=== PATIENT | male | born 1940 | race Caucasian/White ===

== ENCOUNTER 2020-09-23 19:03 | Inpatient (IN) | payer OTHER, MEDICAID ==
[~2020-09-23] VITALS: Ht 167.6 cm; Wt 73.5 kg
[~2020-09-23 19:03] MED LIST: ATOR40TA70; FENO160T9; FURO20TA4; GABA300C; IBUPROFEN; LISI20TA; TRAM50TA
[2020-09-23 19:50] LABS: BASOPHILS % 1.7 % (0.0-2.0); EOSINOPHILS % 4.7 % (0.0-5.0); MEAN CORPUSCULAR HEMOGLOBIN 27.7 pg (28.0-32.0); MEAN CORPUSCULAR VOLUME 86.3 fL (80.0-94.0); MEAN PLATELET VOLUME 7.9 fl (7.4-10.4); MONOCYTES % 6.5 % (2.0-8.0); NEUTROPHILS % 68.1 % (40.0-76.0); PLATELET 339 x1000/uL (130-400); RED BLOOD CELL COUNT 2.09 mill/uL (4.7-6.1); RED CELL DISTRIBUTION WIDTH 19.6 % (11.6-14.6)
[2020-09-23 19:54] LABS: HEMOGLOBIN. 5.8 g/dL (14.0-18.0)
[2020-09-23 19:58] LABS: CHLORIDE 111 mEq/L (98-107)
[2020-09-23 20:16] LABS: INR 1.1; PROTHROMBIN TIME 11.2 sec (9.6-11.0)
[2020-09-23 22:35] LABS: CLARITY URINE CLOUDY (CLEAR); COLOR URINE YELLOW (YELLOW); KETONES URINE NEGATIVE (NEGATIVE); LEUKOCYTE ESTERASE URINE 2+ (NEGATIVE); NITRITE URINE NEGATIVE (NEGATIVE); OCCULT BLOOD URINE 2+ (NEGATIVE); PROTEIN URINE 3+ (NEGATIVE); SPECIFIC GRAVITY URINE 1.016 (1.005-1.030); UROBILINOGEN URINE 0.2 E.U./dL (0.2-1.0)
[2020-09-23] MEDS ORDERED: FUROSEMIDE 40MG/4ML VIAL IVP NR (23:15)
[2020-09-24] VITALS (9 sets, daily range): BP systolic 136–205; BP diastolic 66–84
[2020-09-24 05:11] LABS: MEAN CORPUSCULAR HEMOGLOBIN 29.3 pg (28.0-32.0); MEAN CORPUSCULAR VOLUME 86.6 fL (80.0-94.0); PLATELET 284 x1000/uL (130-400); RED BLOOD CELL COUNT 2.34 mill/uL (4.7-6.1); RED CELL DISTRIBUTION WIDTH 17.9 % (11.6-14.6)
[2020-09-24 05:34] LABS: HEMOGLOBIN 6.9 g/dL (14.0-18.0)
[2020-09-24 05:35] LABS: HEMATOCRIT 20.3 % (42.0-52.0)
[2020-09-24] MEDS ORDERED: CEFTRIAXONE 1 G PREMIX 50 ML IV SCH (09:00)
[2020-09-24] MEDS ORDERED: BISACODYL 10MG SUPP PR PRN (09:00)
[2020-09-24] MEDS ORDERED: ONDANSETRON HCL 4MG/2ML INJ IV PRN (09:00)
[2020-09-24] MEDS ORDERED: AZITHROMYCIN 500 MG TABLET PO SCH (09:00)
[2020-09-24] MEDS ORDERED: BISACODYL 10MG SUPP PR SCH (09:00)
[2020-09-24] MEDS ORDERED: ACETAMINOPHEN 325MG TABLET PO PRN (09:00)
[2020-09-24] MEDS ORDERED: SORBITOL 70% SOLN 30ML PO SCH (09:00)
[2020-09-24] MEDS: NIFEDIPINE XL 60MG TAB PO SCH (11:26)
[2020-09-24] MEDS ORDERED: ATOR20TA65 PO (12:30)
[2020-09-24] MEDS ORDERED: GLIP10TA10 PO (12:30)
[2020-09-24] MEDS ORDERED: FURO20TA4 PO (12:30)
[2020-09-24] MEDS ORDERED: LISI10TA5 PO (12:30)
[2020-09-24] MEDS ORDERED: AMLO2.5T2 PO (12:30)
[2020-09-24] MEDS ORDERED: HYDR-4133 PO (12:30)
[2020-09-24] MEDS ORDERED: CLONIDINE 0.1MG TABLET PO NR (14:00)
[2020-09-24] MEDS ORDERED: PNEUMOCOCCAL 23-VAL P-SAC VAC 0.5 ML IM ONE (15:00)
[2020-09-24] MEDS ORDERED: EPOETIN ALFA-EPBX 10,000 UNIT/ML VIAL SUBCUT SCH (21:00)
[2020-09-24] MEDS: CEFTRIAXONE 1,000 MG in DEXTROSE 5% WATER 50 ML IV SCH (21:17)
[2020-09-25] VITALS: BP 151/56
[2020-09-25 04:00] VITALS: BP 167/66
[2020-09-25] MEDS: CLONIDINE 0.1MG TABLET PO PRN (05:10)
[2020-09-25 06:24] LABS: BASOPHILS % 0.9 % (0.0-2.0); EOSINOPHILS % 3.5 % (0.0-5.0); HEMATOCRIT. 29.1 % (42.0-52.0); HEMOGLOBIN. 9.7 g/dL (14.0-18.0); MEAN CORPUSCULAR HEMOGLOBIN 29.3 pg (28.0-32.0); MEAN CORPUSCULAR VOLUME 87.9 fL (80.0-94.0); MEAN PLATELET VOLUME 8.8 fl (7.4-10.4); MONOCYTES % 7.7 % (2.0-8.0); NEUTROPHILS % 67.9 % (40.0-76.0); PLATELET 273 x1000/uL (130-400); RED BLOOD CELL COUNT 3.31 mill/uL (4.7-6.1)
[2020-09-25 07:07] LABS: PHOSPHORUS 4.7 mg/dL (2.5-4.9)
[2020-09-25 08:00] VITALS: BP 140/53
[2020-09-25] MEDS: NIFEDIPINE XL 60MG TAB PO SCH (08:54)
[2020-09-25] MEDS: AZITHROMYCIN 250 MG TABLET PO SCH (08:54)
[2020-09-25 12:22] VITALS: BP 110/51
[2020-09-25 16:00] VITALS: BP 137/68
[2020-09-25 20:00] VITALS: BP 135/63
[2020-09-25] MEDS: CEFTRIAXONE 1,000 MG in DEXTROSE 5% WATER 50 ML IV SCH (20:48)
[2020-09-26] VITALS: BP 153/90
[2020-09-26 04:00] VITALS: BP 178/63
[2020-09-26] MEDS: CLONIDINE 0.1MG TABLET PO PRN (05:26)
[2020-09-26] MEDS: NIFEDIPINE XL 60MG TAB PO SCH (08:09)
[2020-09-26] MEDS: AZITHROMYCIN 250 MG TABLET PO SCH (08:10)
[2020-09-26 08:42] LABS: BASOPHILS % 1.3 % (0.0-2.0); EOSINOPHILS % 5.2 % (0.0-5.0); HEMATOCRIT. 32.9 % (42.0-52.0); LYMPHOCYTES % 23.2 % (20.0-50.0); MEAN CORPUSCULAR HEMOGLOBIN 29.1 pg (28.0-32.0); MEAN CORPUSCULAR VOLUME 87.4 fL (80.0-94.0); MEAN PLATELET VOLUME 8.8 fl (7.4-10.4); MONOCYTES % 6.8 % (2.0-8.0); NEUTROPHILS % 63.5 % (40.0-76.0); PLATELET 270 x1000/uL (130-400); RED BLOOD CELL COUNT 3.77 mill/uL (4.7-6.1); RED CELL DISTRIBUTION WIDTH 17.3 % (11.6-14.6)
[2020-09-26 08:45] LABS: PHOSPHORUS 4.5 mg/dL (2.5-4.9)
[2020-09-26 12:00] VITALS: BP 133/57
[2020-09-26 12:01] LABS: HEPATITIS B SURFACE AB 779.6 mIU/mL
[2020-09-26 12:12] LABS: HEPATITIS B SURFACE ANTIGEN NEGATIVE
[2020-09-26 16:00] VITALS: BP 151/71
[2020-09-26 20:00] VITALS: BP 142/63
[2020-09-26] MEDS: CEFTRIAXONE 1,000 MG in DEXTROSE 5% WATER 50 ML IV SCH (20:49)
[2020-09-27] VITALS: BP 153/72
[2020-09-27 04:00] VITALS: BP 147/67
[2020-09-27 06:38] LABS: BASOPHILS % 1.2 % (0.0-2.0); EOSINOPHILS % 6.2 % (0.0-5.0); HEMATOCRIT. 28.6 % (42.0-52.0); HEMOGLOBIN. 9.8 g/dL (14.0-18.0); LYMPHOCYTES % 26.1 % (20.0-50.0); MEAN CORPUSCULAR HEMOGLOBIN 29.9 pg (28.0-32.0); MEAN CORPUSCULAR VOLUME 87.7 fL (80.0-94.0); MEAN PLATELET VOLUME 8.9 fl (7.4-10.4); MONOCYTES % 9.1 % (2.0-8.0); NEUTROPHILS % 57.4 % (40.0-76.0); PLATELET 226 x1000/uL (130-400); RED BLOOD CELL COUNT 3.26 mill/uL (4.7-6.1); RED CELL DISTRIBUTION WIDTH 16.8 % (11.6-14.6)
[2020-09-27 08:00] VITALS: BP 145/62
[2020-09-27] MEDS: AZITHROMYCIN 250 MG TABLET PO SCH (09:47)
[2020-09-27] MEDS: NIFEDIPINE XL 60MG TAB PO SCH (09:48)
[2020-09-27 12:00] VITALS: BP 131/58
[2020-09-27 16:00] VITALS: BP 137/72
[2020-09-27] MEDS: CEFTRIAXONE 1,000 MG in DEXTROSE 5% WATER 50 ML IV SCH (20:47)
[2020-09-27 22:00] VITALS: BP 148/70
[2020-09-28 04:00] VITALS: BP 140/58
[2020-09-28 07:12] LABS: BASOPHILS % 0.8 % (0.0-2.0); HEMATOCRIT. 31.5 % (42.0-52.0); HEMOGLOBIN. 10.5 g/dL (14.0-18.0); LYMPHOCYTES % 24.9 % (20.0-50.0); MEAN CORPUSCULAR HEMOGLOBIN 29.2 pg (28.0-32.0); MEAN CORPUSCULAR VOLUME 87.2 fL (80.0-94.0); MEAN PLATELET VOLUME 9.3 fl (7.4-10.4); MONOCYTES % 9.1 % (2.0-8.0); NEUTROPHILS % 59.2 % (40.0-76.0); PLATELET 211 x1000/uL (130-400); RED BLOOD CELL COUNT 3.61 mill/uL (4.7-6.1); RED CELL DISTRIBUTION WIDTH 17.5 % (11.6-14.6)
[2020-09-28 07:39] LABS: PHOSPHORUS 4.8 mg/dL (2.5-4.9)
[2020-09-28 08:00] VITALS: BP 145/66
[2020-09-28] MEDS: AZITHROMYCIN 250 MG TABLET PO SCH (08:38)
[2020-09-28] MEDS: NIFEDIPINE XL 60MG TAB PO SCH (08:38)
[2020-09-28 12:00] VITALS: BP 144/70
[2020-09-28 12:01] VITALS: BP 144/70
[2020-09-28 16:00] VITALS: BP 145/64
[2020-09-28 20:00] VITALS: BP 140/57
[2020-09-28] MEDS: CEFTRIAXONE 1,000 MG in DEXTROSE 5% WATER 50 ML IV SCH (20:50)
[2020-09-29] VITALS: BP 151/60
[2020-09-29 04:00] VITALS: BP 155/64
[2020-09-29 07:31] LABS: BASOPHILS % 1.4 % (0.0-2.0); HEMATOCRIT. 30.4 % (42.0-52.0); HEMOGLOBIN. 10.1 g/dL (14.0-18.0); LYMPHOCYTES % 25.1 % (20.0-50.0); MEAN CORPUSCULAR HEMOGLOBIN 29.4 pg (28.0-32.0); MEAN CORPUSCULAR VOLUME 88.7 fL (80.0-94.0); MONOCYTES % 10.2 % (2.0-8.0); NEUTROPHILS % 56.3 % (40.0-76.0); PLATELET 182 x1000/uL (130-400); RED BLOOD CELL COUNT 3.42 mill/uL (4.7-6.1); RED CELL DISTRIBUTION WIDTH 17.2 % (11.6-14.6)
[2020-09-29 08:00] VITALS: BP 142/73
[2020-09-29] MEDS: NIFEDIPINE XL 60MG TAB PO SCH (09:06)
[2020-09-29 09:11] LABS: PHOSPHORUS 6.1 mg/dL (2.5-4.9)
[2020-09-29 12:00] VITALS: BP 163/63
[2020-09-29] MEDS: CLONIDINE 0.1MG TABLET PO PRN (12:54)
[2020-09-29 16:00] VITALS: BP 140/61
[2020-09-29 20:00] VITALS: BP 150/59
[2020-09-30] VITALS: BP 137/65
[2020-09-30 04:00] VITALS: BP 129/70
[2020-09-30 07:27] LABS: BASOPHILS % 1.2 % (0.0-2.0); EOSINOPHILS % 6.9 % (0.0-5.0); HEMATOCRIT. 28.8 % (42.0-52.0); HEMOGLOBIN. 9.7 g/dL (14.0-18.0); MEAN CORPUSCULAR HEMOGLOBIN 29.8 pg (28.0-32.0); MEAN CORPUSCULAR VOLUME 88.5 fL (80.0-94.0); MEAN PLATELET VOLUME 9.4 fl (7.4-10.4); MONOCYTES % 8.3 % (2.0-8.0); NEUTROPHILS % 61.6 % (40.0-76.0); PLATELET 184 x1000/uL (130-400); RED BLOOD CELL COUNT 3.25 mill/uL (4.7-6.1); RED CELL DISTRIBUTION WIDTH 17.5 % (11.6-14.6)
[2020-09-30 07:38] LABS: PHOSPHORUS 6.5 mg/dL (2.5-4.9)
[2020-09-30 08:00] VITALS: BP 157/66
[2020-09-30] MEDS: NIFEDIPINE XL 60MG TAB PO SCH (08:51)
[2020-09-30 12:00] VITALS: BP 158/60
[2020-09-30] MEDS ORDERED: ALPRAZOLAM 0.5 MG TABLET PO PRN (12:00)
[2020-09-30 16:00] VITALS: BP 141/67
[2020-09-30 20:00] VITALS: BP 160/64
[2020-09-30] MEDS: CLONIDINE 0.1MG TABLET PO PRN (21:21)
[2020-10-01] VITALS: BP 125/61
[2020-10-01 04:00] VITALS: BP 154/69
[2020-10-01 06:40] LABS: BASOPHILS % 1.8 % (0.0-2.0); EOSINOPHILS % 6.7 % (0.0-5.0); HEMOGLOBIN. 9.7 g/dL (14.0-18.0); LYMPHOCYTES % 27.1 % (20.0-50.0); MEAN CORPUSCULAR HEMOGLOBIN 29.7 pg (28.0-32.0); MEAN CORPUSCULAR VOLUME 89.1 fL (80.0-94.0); MEAN PLATELET VOLUME 9.6 fl (7.4-10.4); MONOCYTES % 8.5 % (2.0-8.0); NEUTROPHILS % 55.9 % (40.0-76.0); PLATELET 170 x1000/uL (130-400); RED BLOOD CELL COUNT 3.25 mill/uL (4.7-6.1); RED CELL DISTRIBUTION WIDTH 17.6 % (11.6-14.6)
[2020-10-01 08:00] VITALS: BP 147/40
[2020-10-01] MEDS: NIFEDIPINE XL 60MG TAB PO SCH (08:37)
[2020-10-01 12:00] VITALS: BP 117/45
[2020-10-01 16:00] VITALS: BP 112/79
[2020-10-01 20:00] VITALS: BP 141/58
[2020-10-02] VITALS: BP 138/67
[2020-10-02 04:00] VITALS: BP 152/98
[2020-10-02 07:42] LABS: BASOPHILS % 1.1 % (0.0-2.0); EOSINOPHILS % 6.4 % (0.0-5.0); HEMATOCRIT. 33.6 % (42.0-52.0); HEMOGLOBIN. 11.2 g/dL (14.0-18.0); MEAN CORPUSCULAR HEMOGLOBIN 29.7 pg (28.0-32.0); MEAN CORPUSCULAR VOLUME 89.1 fL (80.0-94.0); MEAN PLATELET VOLUME 9.5 fl (7.4-10.4); MONOCYTES % 8.1 % (2.0-8.0); NEUTROPHILS % 52.4 % (40.0-76.0); PLATELET 186 x1000/uL (130-400); RED BLOOD CELL COUNT 3.77 mill/uL (4.7-6.1)
[2020-10-02 08:10] LABS: PHOSPHORUS 7.2 mg/dL (2.5-4.9)
[2020-10-02] MEDS: NIFEDIPINE XL 60MG TAB PO SCH (08:58)
[2020-10-02 12:00] VITALS: BP 154/59
[2020-10-02 16:00] VITALS: BP 165/71
[2020-10-02 20:00] VITALS: BP 143/56
[2020-10-03] VITALS: BP 140/73
[2020-10-03 04:00] VITALS: BP 146/70
[2020-10-03 07:29] LABS: BASOPHILS % 1.5 % (0.0-2.0); EOSINOPHILS % 6.4 % (0.0-5.0); HEMATOCRIT. 31.5 % (42.0-52.0); HEMOGLOBIN. 10.7 g/dL (14.0-18.0); MEAN CORPUSCULAR HEMOGLOBIN 30.1 pg (28.0-32.0); MEAN CORPUSCULAR VOLUME 88.9 fL (80.0-94.0); MEAN PLATELET VOLUME 9.7 fl (7.4-10.4); MONOCYTES % 7.6 % (2.0-8.0); NEUTROPHILS % 59.5 % (40.0-76.0); PLATELET 176 x1000/uL (130-400); RED BLOOD CELL COUNT 3.54 mill/uL (4.7-6.1); RED CELL DISTRIBUTION WIDTH 17.7 % (11.6-14.6)
[2020-10-03 08:00] VITALS: BP 141/60
[2020-10-03 08:15] LABS: PHOSPHORUS 4.7 mg/dL (2.5-4.9)
[2020-10-03] MEDS: NIFEDIPINE XL 60MG TAB PO SCH (08:19)
[2020-10-03 12:00] VITALS: BP 138/56
[2020-10-03 16:00] VITALS: BP 216/170
[2020-10-03 20:00] VITALS: BP 178/64
[2020-10-03] MEDS: CLONIDINE 0.1MG TABLET PO PRN (21:14)
[2020-10-04] VITALS (7 sets, daily range): BP systolic 130–164; BP diastolic 60–96
[2020-10-04 07:22] LABS: BASOPHILS % 1.8 % (0.0-2.0); EOSINOPHILS % 6.8 % (0.0-5.0); HEMATOCRIT. 27.7 % (42.0-52.0); HEMOGLOBIN. 9.2 g/dL (14.0-18.0); LYMPHOCYTES % 27.2 % (20.0-50.0); MEAN CORPUSCULAR HEMOGLOBIN 29.4 pg (28.0-32.0); MEAN CORPUSCULAR VOLUME 88.4 fL (80.0-94.0); MEAN PLATELET VOLUME 10.1 fl (7.4-10.4); MONOCYTES % 9.2 % (2.0-8.0); PLATELET 146 x1000/uL (130-400); RED BLOOD CELL COUNT 3.13 mill/uL (4.7-6.1); RED CELL DISTRIBUTION WIDTH 17.8 % (11.6-14.6)
[2020-10-04 07:35] LABS: PHOSPHORUS 6.3 mg/dL (2.5-4.9)
[2020-10-04] MEDS: NIFEDIPINE XL 60MG TAB PO SCH (08:40)
[2020-10-04] MEDS ORDERED: EPOETIN ALFA 10000UNITS/ML VIAL SUBCUT ONE (21:00)
[2020-10-05] VITALS (7 sets, daily range): BP systolic 140–161; BP diastolic 45–77
[2020-10-05] MEDS: CLONIDINE 0.1MG TABLET PO PRN (05:27)
[2020-10-05 06:24] LABS: PHOSPHORUS 6.9 mg/dL (2.5-4.9)
[2020-10-05 06:55] LABS: BASOPHILS % 0.8 % (0.0-2.0); EOSINOPHILS % 6.4 % (0.0-5.0); HEMATOCRIT. 33.3 % (42.0-52.0); HEMOGLOBIN. 10.9 g/dL (14.0-18.0); MEAN CORPUSCULAR HEMOGLOBIN 29.3 pg (28.0-32.0); MEAN CORPUSCULAR VOLUME 89.4 fL (80.0-94.0); MONOCYTES % 7.3 % (2.0-8.0); NEUTROPHILS % 56.5 % (40.0-76.0); PLATELET 166 x1000/uL (130-400); RED BLOOD CELL COUNT 3.72 mill/uL (4.7-6.1); RED CELL DISTRIBUTION WIDTH 17.4 % (11.6-14.6)
[2020-10-05] MEDS: NIFEDIPINE XL 60MG TAB PO SCH (09:00)
[2020-10-06] VITALS: BP 136/45
[2020-10-06 04:00] VITALS: BP 142/70
[2020-10-06 06:23] LABS: PHOSPHORUS 6.1 mg/dL (2.5-4.9)
[2020-10-06 07:26] LABS: BASOPHILS % 1.2 % (0.0-2.0); EOSINOPHILS % 6.2 % (0.0-5.0); HEMATOCRIT. 30.8 % (42.0-52.0); HEMOGLOBIN. 10.1 g/dL (14.0-18.0); LYMPHOCYTES % 31.8 % (20.0-50.0); MEAN CORPUSCULAR HEMOGLOBIN 29.3 pg (28.0-32.0); MEAN CORPUSCULAR VOLUME 89.5 fL (80.0-94.0); MONOCYTES % 9.9 % (2.0-8.0); NEUTROPHILS % 50.9 % (40.0-76.0); RED BLOOD CELL COUNT 3.44 mill/uL (4.7-6.1); RED CELL DISTRIBUTION WIDTH 17.6 % (11.6-14.6)
[2020-10-06 08:00] VITALS: BP 132/65
[2020-10-06] MEDS: NIFEDIPINE XL 60MG TAB PO SCH (08:34)
[2020-10-06 12:00] VITALS: BP 145/57
[2020-10-06 15:00] LABS: PLATELET 146 x1000/uL (130-400)
[2020-10-06 16:00] VITALS: BP 141/61
[2020-10-06 20:00] VITALS: BP 167/67
[2020-10-06] MEDS: CLONIDINE 0.1MG TABLET PO PRN (22:09)
[2020-10-07] VITALS: BP 128/54
[2020-10-07 04:00] VITALS: BP 122/60
[2020-10-07 06:42] LABS: BASOPHILS % 1.9 % (0.0-2.0); EOSINOPHILS % 6.3 % (0.0-5.0); HEMATOCRIT. 29.7 % (42.0-52.0); HEMOGLOBIN. 9.9 g/dL (14.0-18.0); LYMPHOCYTES % 29.8 % (20.0-50.0); MEAN CORPUSCULAR HEMOGLOBIN 29.8 pg (28.0-32.0); MEAN CORPUSCULAR VOLUME 89.2 fL (80.0-94.0); MEAN PLATELET VOLUME 10.1 fl (7.4-10.4); MONOCYTES % 9.6 % (2.0-8.0); NEUTROPHILS % 52.4 % (40.0-76.0); PLATELET 146 x1000/uL (130-400); RED BLOOD CELL COUNT 3.33 mill/uL (4.7-6.1); RED CELL DISTRIBUTION WIDTH 17.6 % (11.6-14.6)
[2020-10-07 07:12] LABS: PHOSPHORUS 6.3 mg/dL (2.5-4.9)
[2020-10-07 08:00] VITALS: BP 131/63
[2020-10-07] MEDS: NIFEDIPINE XL 60MG TAB PO SCH (08:33)
[2020-10-07 12:00] VITALS: BP 151/75
[2020-10-07] MEDS ORDERED: NIFE-32 PO (14:10)
[2020-10-07 16:00] VITALS: BP 149/60
== END 2020-10-07 16:35 | disposition home or self-care (01) | DRG 177 ==
LOC: ER 19:03 → 7WST 09-24 00:12 → ENRESERV 09-24 08:08
PROVIDERS: ADMIT Internal Medicine; ATTEND Internal Medicine
PROC: 30233N1 Transfusion of Nonautologous Red Blood Cells into Peripheral Vein, Percutaneous Approach (ICD-10-PCS; principal; 2020-09-24)
PROC: 5A1D70Z Performance of Urinary Filtration, Intermittent, Less than 6 Hours Per Day (ICD-10-PCS; 2020-09-25)
PROC: 5A1D70Z Performance of Urinary Filtration, Intermittent, Less than 6 Hours Per Day (ICD-10-PCS; 2020-09-26)
PROC: 5A1D70Z Performance of Urinary Filtration, Intermittent, Less than 6 Hours Per Day (ICD-10-PCS; 2020-09-29)
PROC: 5A1D70Z Performance of Urinary Filtration, Intermittent, Less than 6 Hours Per Day (ICD-10-PCS; 2020-10-01)
PROC: 5A1D70Z Performance of Urinary Filtration, Intermittent, Less than 6 Hours Per Day (ICD-10-PCS; 2020-10-04)
PROC: 5A1D70Z Performance of Urinary Filtration, Intermittent, Less than 6 Hours Per Day (ICD-10-PCS; 2020-10-06)
DX: U07.1 COVID-19 (principal); J96.91 Respiratory failure, unspecified with hypoxia; N18.6 End stage renal disease; J12.82 Pneumonia due to coronavirus disease 2019; I13.2 Hypertensive heart and chronic kidney disease with heart failure and with stage 5 chronic kidney disease, or end stage renal disease; E44.0 Moderate protein-calorie malnutrition; E87.2 Acidosis; N13.8 Other obstructive and reflux uropathy; N20.2 Calculus of kidney with calculus of ureter; N17.9 Acute kidney failure, unspecified; N25.81 Secondary hyperparathyroidism of renal origin; E11.22 Type 2 diabetes mellitus with diabetic chronic kidney disease; I16.0 Hypertensive urgency; K56.41 Fecal impaction; E87.8 Other disorders of electrolyte and fluid balance, not elsewhere classified; E78.5 Hyperlipidemia, unspecified; M19.90 Unspecified osteoarthritis, unspecified site; D64.9 Anemia, unspecified; I50.9 Heart failure, unspecified; E78.00 Pure hypercholesterolemia, unspecified; N26.1 Atrophy of kidney (terminal); Z87.442 Personal history of urinary calculi; Z99.2 Dependence on renal dialysis; Z82.49 Family history of ischemic heart disease and other diseases of the circulatory system; Z83.3 Family history of diabetes mellitus; Z68.26 Body mass index [BMI] 26.0-26.9, adult; Z79.899 Other long term (current) drug therapy
CPT/HCPCS: 36415; 71045; 74176; 80048; 80053; 81003; 82270; 83605; 83735; 83880; 84100; 84484; 85025; 85027; 86705; 86706; 86803; 86850; 86900; 86920; 87340; 87426; 93005; 99291; J0696; J0885; J1940; J7060; P9016; U0003

== ENCOUNTER 2022-04-28 20:58 | Emergency (ER) | payer MEDICARE, MEDICAID ==
[~2022-04-28] VITALS: Ht 167.6 cm; Wt 69.0 kg
[~2022-04-28 20:58] MED LIST changes: +ATOR20TA65 PO; -ATOR40TA70; -FENO160T9; -FURO20TA4; -GABA300C; -IBUPROFEN; -LISI20TA; +NIFE-32 PO; -TRAM50TA
[2022-04-28] MEDS ORDERED: ONDANSETRON HCL 4MG/2ML INJ IV STA (22:48)
[2022-04-28] MEDS ORDERED: MORPHINE SULFATE 4 MG/ML CPJ (NOT FOR IM USE) IV STA (22:48)
[2022-04-28 23:04] LABS: EOSINOPHILS % 4.3 % (0.0-5.0); HEMATOCRIT. 41.6 % (42.0-52.0); HEMOGLOBIN. 13.5 g/dL (14.0-18.0); LYMPHOCYTES % 20.3 % (20.0-50.0); MEAN CORPUSCULAR HEMOGLOBIN 31.1 pg (28.0-32.0); MEAN CORPUSCULAR VOLUME 96.1 fL (80.0-94.0); MEAN PLATELET VOLUME 9.8 fl (7.4-10.4); MONOCYTES % 8.8 % (2.0-8.0); NEUTROPHILS % 65.6 % (40.0-76.0); PLATELET 174 x1000/uL (130-400); RED BLOOD CELL COUNT 4.33 mill/uL (4.7-6.1); RED CELL DISTRIBUTION WIDTH 14.6 % (11.6-14.6)
[2022-04-28 23:08] LABS: CHLORIDE 103 mEq/L (98-107)
[2022-04-28 23:11] LABS: CLARITY URINE TURBID (CLEAR); COLOR URINE YELLOW (YELLOW); KETONES URINE NEGATIVE (NEGATIVE); LEUKOCYTE ESTERASE URINE 3+ (NEGATIVE); NITRITE URINE NEGATIVE (NEGATIVE); OCCULT BLOOD URINE 2+ (NEGATIVE); PH URINE 7.5 (4.5-8.0); PROTEIN URINE 3+ (NEGATIVE); SPECIFIC GRAVITY URINE 1.015 (1.005-1.030); UROBILINOGEN URINE 0.2 E.U./dL (0.2-1.0)
[2022-04-29] MEDS ORDERED: PIPERACILLIN/TAZ 3.375G PREMIX 50 ML IV NR (01:30)
[2022-04-29] MEDS ORDERED: CEPH500C2 MT (08:29)
[2022-04-29] MEDS ORDERED: TRAM50TA MT (08:29)
[2022-04-29 08:51] VITALS: BP 183/70
== END 2022-04-29 09:15 | disposition home or self-care (01) ==
LOC: ER 20:58 → EDBEDREQ 04-29 08:12 → ENRESERV 04-29 08:22 → CANRESERV 04-29 08:22 → CANBEDREQ 04-29 08:31 → ER 04-29 09:15
DX: N39.0 Urinary tract infection, site not specified (principal); M79.605 Pain in left leg; I12.0 Hypertensive chronic kidney disease with stage 5 chronic kidney disease or end stage renal disease; E11.22 Type 2 diabetes mellitus with diabetic chronic kidney disease; N18.6 End stage renal disease; E78.00 Pure hypercholesterolemia, unspecified; Z99.2 Dependence on renal dialysis; Z79.899 Other long term (current) drug therapy
CPT/HCPCS: 36415; 71045; 74176; 80053; 81003; 83605; 83690; 85025; 87040; 87077; 87086; 87186; 93971; 96365; 96375; 99285; J2270; J2405; J2543

== ENCOUNTER 2022-05-13 10:17 | Emergency (ER) | payer MEDICARE, MEDICAID ==
[~2022-05-13] VITALS: Ht 167.6 cm; Wt 81.0 kg
[~2022-05-13 10:17] MED LIST changes: +CEPH500C2 MT; +TRAM50TA MT
[2022-05-13 10:40] VITALS: BP 172/64
[2022-05-13] MEDS ORDERED: LIDOCAINE HCL 1% 20ML VIAL (Pyxis) INJ INFIL ONE (17:00)
[2022-05-13] MEDS ORDERED: ACETAMINOPHEN 325MG TABLET PO ONE (17:30)
== END 2022-05-13 18:58 | disposition home or self-care (01) ==
LOC: ER 10:46
DX: M25.462 Effusion, left knee (principal); E11.9 Type 2 diabetes mellitus without complications; I10 Essential (primary) hypertension; E78.00 Pure hypercholesterolemia, unspecified; Z98.890 Other specified postprocedural states
CPT/HCPCS: 20610; 73562; 99285; J3490

== ENCOUNTER 2022-05-27 18:35 | Emergency (ER) | payer MEDICARE, MEDICAID ==
[~2022-05-27] VITALS: Ht 170.2 cm; Wt 82.0 kg
[2022-05-27] MEDS ORDERED: CEFTRIAXONE 1 G PREMIX 50 ML IV ONE (23:45)
[2022-05-28] MEDS ORDERED: MORPHINE SULFATE 4 MG/ML CPJ (NOT FOR IM USE) IV ONE (10:15)
[2022-05-29] MEDS ORDERED: NIFEDIPINE XL 60MG TAB PO ONE (02:15)
[2022-05-29 18:00] VITALS: BP 147/72
[2022-05-29] MEDS ORDERED: MORPHINE SULFATE 4 MG/ML CPJ (NOT FOR IM USE) IV ONE (22:30)
[2022-05-29] MEDS ORDERED: AMPICILLIN SOD/SULBACTAM NA 3 G in SODIUM CHLORIDE 0.9% 100 ML IV SCH (22:30)
== END 2022-05-29 23:30 | disposition left against medical advice (07) ==
LOC: ER 18:35
DX: M79.641 Pain in right hand (principal); I10 Essential (primary) hypertension; E11.9 Type 2 diabetes mellitus without complications; E78.00 Pure hypercholesterolemia, unspecified; Z98.890 Other specified postprocedural states; W18.30XA Fall on same level, unspecified, initial encounter; Y93.89 Activity, other specified; Y92.89 Other specified places as the place of occurrence of the external cause; Y99.8 Other external cause status
CPT/HCPCS: 70450; 70486; 71045; 72125; 72170; 96365; 96375; 99284; J0295; J0696; J2270; J7050

== ENCOUNTER 2022-06-22 13:39 | Emergency (ER) | payer MEDICARE, MEDICAID ==
[~2022-06-22] VITALS: Ht 165.1 cm; Wt 57.5 kg
[2022-06-22 15:00] LABS: CHLORIDE 103 mEq/L (98-107)
[2022-06-22 15:09] LABS: BASOPHILS % 1.7 % (0.0-2.0); EOSINOPHILS % 8.9 % (0.0-5.0); HEMOGLOBIN. 8.5 g/dL (14.0-18.0); LYMPHOCYTES % 14.9 % (20.0-50.0); MEAN CORPUSCULAR HEMOGLOBIN 31.2 pg (28.0-32.0); MEAN CORPUSCULAR VOLUME 91.7 fL (80.0-94.0); MEAN PLATELET VOLUME 9.2 fl (7.4-10.4); MONOCYTES % 7.4 % (2.0-8.0); NEUTROPHILS % 67.1 % (40.0-76.0); PLATELET 231 x1000/uL (130-400); RED BLOOD CELL COUNT 2.73 mill/uL (4.7-6.1)
[2022-06-22 15:18] LABS: BG BASE EXCESS -5.2 mmol/L (-2.0-2.0); BG CARBOXYHEMOGLOBIN 0.3 % (0.5-1.5); BG DEOXYHEMOGLOBIN 5.3 % (0.0-5.0); BG HCO3 ACT 19.4 mmol/L (22.0-26.0); BG METHEMOGLOBIN 0.3 % (0.0-1.5); BG OXYGEN SATURATION 94.7 % (92.0-98.5); BG OXYHEMOGLOBIN 94.1 % (94.0-97.0); BG PCO2 33.7 mmHg (35.0-45.0); BG PH 7.378 (7.350-7.450); BG PO2 78.6 mmHg (75.0-100.0); BG SAMPLE SITE RIGHT RADIAL; BG TOTAL HEMOGLOBIN 8.3 g/dL (12.0-18.0); BG VENT MODE ROOM AIR
[2022-06-22 15:54] LABS: PARTIAL THROMBOPLASTIN TIME 29.9 sec (23.4-31.0); PROTHROMBIN TIME 11.2 sec (9.6-11.0)
[2022-06-22] MEDS ORDERED: SODIUM POLYSTYRENE SULFONATE 15 G/60 ML BOT PO ONE (17:00)
[2022-06-22 19:43] VITALS: BP 168/94
== END 2022-06-22 20:47 | disposition short-term general hospital (02) ==
LOC: ER 13:39 → CANBEDREQ 15:17 → ER 20:47
DX: T82.868A Thrombosis due to vascular prosthetic devices, implants and grafts, initial encounter (principal); I82.612 Acute embolism and thrombosis of superficial veins of left upper extremity; I12.0 Hypertensive chronic kidney disease with stage 5 chronic kidney disease or end stage renal disease; E11.22 Type 2 diabetes mellitus with diabetic chronic kidney disease; N18.6 End stage renal disease; N17.9 Acute kidney failure, unspecified; D64.9 Anemia, unspecified; E87.8 Other disorders of electrolyte and fluid balance, not elsewhere classified; Z20.822 Contact with and (suspected) exposure to COVID-19; Z99.2 Dependence on renal dialysis; Z79.899 Other long term (current) drug therapy
CPT/HCPCS: 36415; 36600; 71045; 80053; 82375; 82805; 83735; 84100; 85025; 85610; 85730; 87426; 93005; 93971; 99285; C9803

== ENCOUNTER 2022-07-19 15:05 | Inpatient (IN) | payer MEDICARE, MEDICAID ==
[~2022-07-19] VITALS: Ht 175.3 cm; Wt 79.8 kg
[2022-07-19] MEDS ORDERED: TETRACAINE 0.5% OPHTH DROPS 4ML RIGHTEYE ONE (16:00)
[2022-07-19] MEDS ORDERED: TETANUS, DIPHTHERIA, PERTUSSIS VAC/PF 0.5ML (>10YR OLD) IM ONE (16:00)
[2022-07-19] MEDS ORDERED: FLUORESCEIN SODIUM 1MG/STRIP RIGHTEYE ONE (16:00)
[2022-07-19 17:06] LABS: HEMATOCRIT. 25.2 % (42.0-52.0); HEMOGLOBIN. 8.5 g/dL (14.0-18.0); LYMPHOCYTES % 17.1 % (20.0-50.0); MEAN CORPUSCULAR HEMOGLOBIN 31.3 pg (28.0-32.0); MEAN CORPUSCULAR VOLUME 93.1 fL (80.0-94.0); MEAN PLATELET VOLUME 9.6 fl (7.4-10.4); MONOCYTES % 7.1 % (2.0-8.0); NEUTROPHILS % 65.8 % (40.0-76.0); PLATELET 176 x1000/uL (130-400); RED BLOOD CELL COUNT 2.71 mill/uL (4.7-6.1); RED CELL DISTRIBUTION WIDTH 15.9 % (11.6-14.6)
[2022-07-19 17:26] LABS: CHLORIDE 97 mEq/L (98-107)
[2022-07-19 17:35] LABS: ETHANOL BLOOD < 10 mg/dL
[2022-07-19] MEDS: AMPICILLIN SOD/SULBACTAM NA 1.5 G in SODIUM CHLORIDE 0.9% 50 ML IV SCH (18:57)
[2022-07-19] MEDS ORDERED: HYDROCODONE/ACETAMINOPHEN 5/325MG TABLET PO NR (20:45)
[2022-07-19] MEDS: LIDOCAINE 5% PATCH TOP SCH (20:59)
[2022-07-19] MEDS ORDERED: AMPICILLIN SOD/SULBACTAM NA 1.5 G in SODIUM CHLORIDE 0.9% 50 ML IV SCH (21:00)
[2022-07-19] MEDS ORDERED: NALOXONE HCL 0.4 MG/ML 1ML VIAL IV PRN (21:00)
[2022-07-19] MEDS ORDERED: MORPHINE SULFATE 4 MG/ML CPJ (NOT FOR IM USE) IV PRN (21:00)
[2022-07-19] MEDS ORDERED: FUROSEMIDE 100MG/10ML VIAL IVP ONE (23:15)
[2022-07-20] VITALS (11 sets, daily range): BP systolic 135–177; BP diastolic 58–72
[2022-07-20 00:53] LABS: HEPATITIS B SURFACE ANTIGEN NEGATIVE
[2022-07-20] MEDS: AMPICILLIN SOD/SULBACTAM NA 1.5 G in SODIUM CHLORIDE 0.9% 50 ML IV SCH ×2 (01:09→06:50)
[2022-07-20] MEDS: LIDOCAINE 5% PATCH TOP SCH (09:22)
[2022-07-20] MEDS ORDERED: ACETAMINOPHEN 325MG TABLET PO PRN (16:15)
[2022-07-20] MEDS ORDERED: HYDROCODONE/ACETAMINOPHEN 5/325MG TABLET PO PRN (16:15)
[2022-07-20] MEDS ORDERED: CLONIDINE 0.1MG TABLET PO PRN (16:15)
[2022-07-20] MEDS ORDERED: ONDANSETRON HCL 4MG/2ML INJ IV PRN (16:15)
[2022-07-20] MEDS ORDERED: NALOXONE HCL 0.4MG/ML VIAL IV PRN (16:30)
[2022-07-20] MEDS: NIFEDIPINE XL 60MG TAB PO SCH (18:40)
[2022-07-20] MEDS: ATORVASTATIN CALCIUM 20MG TABLET PO SCH (18:41)
[2022-07-20] MEDS: ACETAMINOPHEN 325MG TABLET PO SCH (22:48)
[2022-07-21] VITALS (7 sets, daily range): BP systolic 120–140; BP diastolic 48–89
[2022-07-21 04:31] LABS: CREATINE KINASE MB FRACTION 2.6 ng/mL (0.5-3.6)
[2022-07-21] MEDS ORDERED: AMPICILLIN/SULBACTAM 1.5G in SODIUM CHLORIDE 0.9% 50ML IV SCH (06:00)
[2022-07-21] MEDS: ACETAMINOPHEN 325MG TABLET PO SCH ×3 (06:00→21:55)
[2022-07-21 06:34] LABS: *AMPHETAMINES SCREEN URINE NEGATIVE (NEGATIVE)
[2022-07-21 06:35] LABS: *BARBITURATES SCREEN URINE NEGATIVE (NEGATIVE); *BENZODIAZEPINES SCREEN URINE NEGATIVE (NEGATIVE); METHADONE URINE SCREEN NEGATIVE (NEGATIVE); OPIATES URINE SCREEN NEGATIVE (NEGATIVE); PHENCYCLIDINE URINE SCREEN NEGATIVE (NEGATIVE)
[2022-07-21 07:11] LABS: BASOPHILS % 1.9 % (0.0-2.0); EOSINOPHILS % 9.3 % (0.0-5.0); HEMOGLOBIN. 7.8 g/dL (14.0-18.0); LYMPHOCYTES % 23.4 % (20.0-50.0); MEAN CORPUSCULAR HEMOGLOBIN 30.9 pg (28.0-32.0); MEAN CORPUSCULAR VOLUME 91.7 fL (80.0-94.0); MEAN PLATELET VOLUME 9.3 fl (7.4-10.4); MONOCYTES % 10.8 % (2.0-8.0); NEUTROPHILS % 54.6 % (40.0-76.0); PLATELET 181 x1000/uL (130-400); RED BLOOD CELL COUNT 2.51 mill/uL (4.7-6.1); RED CELL DISTRIBUTION WIDTH 15.5 % (11.6-14.6)
[2022-07-21] MEDS: NIFEDIPINE XL 60MG TAB PO SCH (09:41)
[2022-07-21 11:21] LABS: CREATINE KINASE 212 IU/L (39-308); CREATINE KINASE MB FRACTION 2.6 ng/mL (0.5-3.6)
[2022-07-21 16:04] LABS: CHLORIDE 99 mEq/L (98-107)
[2022-07-21] MEDS: ATORVASTATIN CALCIUM 20MG TABLET PO SCH (18:11)
[2022-07-22] VITALS (17 sets, daily range): BP systolic 128–174; BP diastolic 53–68
[2022-07-22] MEDS: ACETAMINOPHEN 325MG TABLET PO SCH ×2 (06:00→12:26)
[2022-07-22 07:39] LABS: HEMATOCRIT 23.4 % (42.0-52.0); MEAN CORPUSCULAR VOLUME 91.4 fL (80.0-94.0); PLATELET 173 x1000/uL (130-400); RED BLOOD CELL COUNT 2.56 mill/uL (4.7-6.1); RED CELL DISTRIBUTION WIDTH 15.5 % (11.6-14.6)
[2022-07-22] MEDS: NIFEDIPINE XL 60MG TAB PO SCH (08:36)
[2022-07-22 10:43] LABS: T4 FREE 0.85 ng/dL (0.76-1.46)
[2022-07-22] MEDS ORDERED: EPOETIN ALFA-EPBX 4,000 UNIT/ML VIAL SUBCUT SCH (21:00)
== END 2022-07-22 16:35 | disposition home or self-care (01) | DRG 85 ==
LOC: ER 15:05 → 8WST 07-20 06:58 → EDBEDREQ 07-20 07:02 → EDBEDREQTM 07-20 07:02 → EDBEDREQDT 07-20 07:02
PROVIDERS: ADMIT Internal Medicine; ATTEND Internal Medicine
PROC: 5A1D70Z Performance of Urinary Filtration, Intermittent, Less than 6 Hours Per Day (ICD-10-PCS; 2022-07-19)
PROC: 5A1D70Z Performance of Urinary Filtration, Intermittent, Less than 6 Hours Per Day (ICD-10-PCS; principal; 2022-07-22)
DX: S02.85XA Fracture of orbit, unspecified, initial encounter for closed fracture (principal); N18.6 End stage renal disease; S22.32XA Fracture of one rib, left side, initial encounter for closed fracture; I12.0 Hypertensive chronic kidney disease with stage 5 chronic kidney disease or end stage renal disease; D64.9 Anemia, unspecified; E11.22 Type 2 diabetes mellitus with diabetic chronic kidney disease; Z20.822 Contact with and (suspected) exposure to COVID-19; Y93.01 Activity, walking, marching and hiking; W01.0XXA Fall on same level from slipping, tripping and stumbling without subsequent striking against object, initial encounter; E78.00 Pure hypercholesterolemia, unspecified; I08.0 Rheumatic disorders of both mitral and aortic valves; Z79.899 Other long term (current) drug therapy; Y99.8 Other external cause status; Z82.49 Family history of ischemic heart disease and other diseases of the circulatory system; Z83.3 Family history of diabetes mellitus; Z87.442 Personal history of urinary calculi; Z99.2 Dependence on renal dialysis; Y92.480 Sidewalk as the place of occurrence of the external cause
CPT/HCPCS: 36415; 70486; 71045; 71250; 73060; 73090; 80048; 80053; 80305; 80320; 82550; 82553; 82962; 83880; 84439; 84443; 84481; 84484; 85025; 85027; 86705; 86709; 86803; 87340; 87426; 90715; 90935; 93005; 93306; 93970; 97162; 97535; 99285; J0295; J1940; G0480

== ENCOUNTER 2023-02-12 15:27 | Emergency (ER) | payer MEDICARE, MEDICAID ==
[~2023-02-12] VITALS: Ht 162.6 cm; Wt 75.0 kg
[2023-02-12 15:40] VITALS: O2SAT 100
[2023-02-12 17:51] VITALS: TEMP 98.6
[2023-02-12 18:15] VITALS: BP 177/72; PULSE 99; RESP 18
[2023-02-12] MEDS ORDERED: KETOROLAC 30MG/ML VIAL IV ONE (18:15)
[2023-02-12] MEDS ORDERED: HYDROCODONE/ACETAMINOPHEN 5/325MG TABLET PO ONE (18:15)
[2023-02-12 21:02] LABS: HEMATOCRIT. 38.2 % (42.0-52.0); HEMOGLOBIN. 12.6 g/dL (14.0-18.0); MEAN CORPUSCULAR HEMOGLOBIN 27.9 pg (28.0-32.0); MEAN PLATELET VOLUME 8.6 fl (7.4-10.4); PLATELET 197 x1000/uL (130-400); RED CELL DISTRIBUTION WIDTH 18.1 % (11.6-14.6)
[2023-02-12 21:06] LABS: CHLORIDE 94 mEq/L (98-107)
[2023-02-12 21:09] LABS: INR 1.1; PROTHROMBIN TIME 11.5 sec (9.6-11.0)
[2023-02-12] MEDS ORDERED: MORP15TA67 MT (21:50)
[2023-02-12] MEDS ORDERED: TOPUD PO (21:50)
[2023-02-12 22:14] LABS: PLATELET ESTIMATE NORMAL
== END 2023-02-12 23:55 | disposition home or self-care (01) ==
LOC: ER 15:27
DX: S32.591A Other specified fracture of right pubis, initial encounter for closed fracture (principal); I12.0 Hypertensive chronic kidney disease with stage 5 chronic kidney disease or end stage renal disease; E11.22 Type 2 diabetes mellitus with diabetic chronic kidney disease; N18.6 End stage renal disease; Z99.2 Dependence on renal dialysis; Z79.899 Other long term (current) drug therapy; W18.39XA Other fall on same level, initial encounter; Y93.89 Activity, other specified; Y92.89 Other specified places as the place of occurrence of the external cause; Y99.8 Other external cause status
CPT/HCPCS: 99285; 96374; 72192; 80053; 85025; 85610; 36415; 73502; 73552; 72100; 73562; J1885

== ENCOUNTER 2023-02-19 10:30 | Inpatient (IN) | payer MEDICARE, MEDICAID ==
[~2023-02-19] VITALS: Ht 170.2 cm; Wt 81.0 kg
[~2023-02-19 10:30] MED LIST changes: +MORP15TA67 MT; +TOPUD PO
[2023-02-19 12:26] LABS: CHLORIDE 95 mEq/L (98-107)
[2023-02-19 12:28] LABS: BASOPHILS % 0.7 % (0.0-2.0); EOSINOPHILS % 5.8 % (0.0-5.0); HEMOGLOBIN. 10.4 g/dL (14.0-18.0); LYMPHOCYTES % 13.7 % (20.0-50.0); MEAN CORPUSCULAR HEMOGLOBIN 27.6 pg (28.0-32.0); MEAN CORPUSCULAR VOLUME 84.8 fL (80.0-94.0); MEAN PLATELET VOLUME 7.7 fl (7.4-10.4); MONOCYTES % 10.7 % (2.0-8.0); NEUTROPHILS % 69.1 % (40.0-76.0); PLATELET 176 x1000/uL (130-400); RED BLOOD CELL COUNT 3.78 mill/uL (4.7-6.1); RED CELL DISTRIBUTION WIDTH 18.3 % (11.6-14.6)
[2023-02-19] MEDS ORDERED: MORPHINE SULFATE 15MG TABLET SR PO NR (12:30)
[2023-02-19 18:30] VITALS: BP 115/61; PULSE 78; RESP 18; TEMP 98.1
[2023-02-19 20:00] VITALS: BP 121/53; PULSE 82; RESP 18; TEMP 98.2
[2023-02-20] VITALS (15 sets, daily range): BP systolic 106–147; BP diastolic 45–84; PULSE 67–92; RESP 16–20; TEMP 97.4–98.2
[2023-02-20] MEDS ORDERED: ONDANSETRON HCL 4MG/2ML INJ IV PRN (11:00)
[2023-02-20] MEDS ORDERED: ACETAMINOPHEN 325MG TABLET PO PRN (11:00)
[2023-02-20] MEDS ORDERED: IPRATROPIUM/ALBUTEROL 0.5-3(2.5)MG/3ML NEB HHN PRN (11:00)
[2023-02-20] MEDS: NIFEDIPINE XL 60MG TAB PO SCH (11:00)
[2023-02-20 11:51] LABS: HEPATITIS B SURFACE ANTIGEN NEGATIVE
[2023-02-20] MEDS ORDERED: DEXTROSE 50% WATER 50ML SYRINGE IV NR (13:00)
[2023-02-20 14:56] LABS: *AMPHETAMINES SCREEN URINE NEGATIVE (NEGATIVE); *BARBITURATES SCREEN URINE NEGATIVE (NEGATIVE); *BENZODIAZEPINES SCREEN URINE NEGATIVE (NEGATIVE); *COCAINE SCREEN URINE NEGATIVE (NEGATIVE); CANNABINOID URINE SCREEN NEGATIVE (NEGATIVE); METHADONE URINE SCREEN NEGATIVE (NEGATIVE); OPIATES URINE SCREEN PRESUMTIVE POSITIVE (NEGATIVE); PHENCYCLIDINE URINE SCREEN NEGATIVE (NEGATIVE)
[2023-02-20 16:27] LABS: CREATINE KINASE MB FRACTION 6.9 ng/mL (0.5-3.6)
[2023-02-20] MEDS: ATORVASTATIN CALCIUM 20MG TABLET PO SCH (16:53)
[2023-02-20] MEDS: HEPARIN 5000 UNITS/ML VIAL SUBCUT SCH (21:00)
[2023-02-20 23:40] LABS: CREATINE KINASE MB FRACTION 6.5 ng/mL (0.5-3.6)
[2023-02-21] VITALS: BP 138/59; PULSE 75; RESP 19; TEMP 98.1
[2023-02-21 04:00] VITALS: BP 140/64; PULSE 75; RESP 19; TEMP 97.9
[2023-02-21 06:36] LABS: BASOPHILS % 0.7 % (0.0-2.0); EOSINOPHILS % 11.2 % (0.0-5.0); HEMATOCRIT. 29.9 % (42.0-52.0); LYMPHOCYTES % 16.2 % (20.0-50.0); MEAN CORPUSCULAR HEMOGLOBIN 27.6 pg (28.0-32.0); MEAN CORPUSCULAR VOLUME 82.7 fL (80.0-94.0); MEAN PLATELET VOLUME 7.9 fl (7.4-10.4); MONOCYTES % 9.9 % (2.0-8.0); PLATELET 197 x1000/uL (130-400); RED BLOOD CELL COUNT 3.61 mill/uL (4.7-6.1)
[2023-02-21 08:00] VITALS: BP 150/61; PULSE 76; RESP 19; TEMP 98.6
[2023-02-21] MEDS: NIFEDIPINE XL 60MG TAB PO SCH (11:33)
[2023-02-21] MEDS: HEPARIN 5000 UNITS/ML VIAL SUBCUT SCH ×2 (11:44→20:47)
[2023-02-21 12:00] VITALS: BP 160/69; PULSE 65; RESP 19; TEMP 97.9
[2023-02-21 16:00] VITALS: BP 125/94; PULSE 77; RESP 19; TEMP 97.9
[2023-02-21 20:00] VITALS: BP 154/54; PULSE 79; RESP 19; TEMP 97.8
[2023-02-21] MEDS: ATORVASTATIN CALCIUM 20MG TABLET PO SCH (20:46)
[2023-02-21] MEDS ORDERED: ASCO-339 PO (23:37)
[2023-02-21] MEDS ORDERED: FERR325T6 PO (23:37)
[2023-02-21] MEDS ORDERED: SERT-112 PO (23:37)
[2023-02-21] MEDS ORDERED: NEPVIT PO (23:37)
[2023-02-21] MEDS ORDERED: METO-396 MT (23:37)
[2023-02-21] MEDS ORDERED: AMLO10TA80 PO (23:37)
[2023-02-21] MEDS ORDERED: METO-396 PO (23:37)
[2023-02-21] MEDS ORDERED: AMOX1TAB16 PO (23:37)
[2023-02-21] MEDS ORDERED: clonidine PO (23:37)
[2023-02-22] VITALS (15 sets, daily range): BP systolic 118–142; BP diastolic 44–91; PULSE 72–87; RESP 16–20; TEMP 97.3–98.3
[2023-02-22 06:58] LABS: HEMATOCRIT. 32.2 % (42.0-52.0); HEMOGLOBIN. 10.5 g/dL (14.0-18.0); MEAN CORPUSCULAR HEMOGLOBIN 27.3 pg (28.0-32.0); MEAN CORPUSCULAR VOLUME 83.5 fL (80.0-94.0); MEAN PLATELET VOLUME 8.2 fl (7.4-10.4); PLATELET 221 x1000/uL (130-400); RED BLOOD CELL COUNT 3.86 mill/uL (4.7-6.1); RED CELL DISTRIBUTION WIDTH 17.9 % (11.6-14.6)
[2023-02-22] MEDS: HEPARIN 5000 UNITS/ML VIAL SUBCUT SCH ×2 (09:20→20:42)
[2023-02-22] MEDS: NIFEDIPINE XL 60MG TAB PO SCH (09:20)
[2023-02-22] MEDS ORDERED: METOCLOPRAMIDE HCL 10MG/2ML VIAL IV NR (12:30)
[2023-02-22] MEDS ORDERED: NA PHOS,M-B/NA PHOS,DI-BA ENEMA 118ML PR NR (12:30)
[2023-02-22 16:48] LABS: PLATELET ESTIMATE NORMAL
[2023-02-22] MEDS: ATORVASTATIN CALCIUM 20MG TABLET PO SCH (17:26)
[2023-02-22] MEDS: PANTOPRAZOLE SODIUM 40 MG/VIAL IV SCH (18:19)
[2023-02-22] MEDS: DOCUSATE SODIUM 250MG CAPSULE PO SCH (18:19)
[2023-02-22] MEDS: POLYETHYLENE GLYCOL 3350 (17GM) 1 DOSE PACK PO SCH (18:19)
[2023-02-22 22:15] LABS: TOTAL IRON BINDING CAPACITY 278 ug/dL (250-450)
[2023-02-22 22:40] LABS: FOLIC ACID (FOLATE) SERUM 8.3 ng/mL (>5.38)
[2023-02-23] VITALS: BP 124/77; PULSE 81; RESP 19; TEMP 97.8
[2023-02-23 04:00] VITALS: BP 169/66; PULSE 78; RESP 18; TEMP 98.4
[2023-02-23] MEDS ORDERED: DIATR MEGLU/DIATRIZOATE SOLN 120ML ONE (07:34)
[2023-02-23 08:00] VITALS: BP 147/58; PULSE 77; RESP 18; TEMP 98.8
[2023-02-23] MEDS: DOCUSATE SODIUM 250MG CAPSULE PO SCH ×2 (08:23→16:17)
[2023-02-23] MEDS: POLYETHYLENE GLYCOL 3350 (17GM) 1 DOSE PACK PO SCH (08:24)
[2023-02-23] MEDS: NIFEDIPINE XL 60MG TAB PO SCH (08:24)
[2023-02-23] MEDS: HEPARIN 5000 UNITS/ML VIAL SUBCUT SCH (08:25)
[2023-02-23] MEDS: PANTOPRAZOLE SODIUM 40 MG/VIAL IV SCH (08:25)
[2023-02-23 11:48] LABS: EOSINOPHILS % 6.4 % (0.0-5.0); HEMATOCRIT. 33.1 % (42.0-52.0); LYMPHOCYTES % 11.6 % (20.0-50.0); MEAN CORPUSCULAR HEMOGLOBIN 27.4 pg (28.0-32.0); MEAN CORPUSCULAR VOLUME 82.5 fL (80.0-94.0); MEAN PLATELET VOLUME 7.6 fl (7.4-10.4); MONOCYTES % 7.5 % (2.0-8.0); NEUTROPHILS % 73.5 % (40.0-76.0); PLATELET 243 x1000/uL (130-400); RED BLOOD CELL COUNT 4.01 mill/uL (4.7-6.1); RED CELL DISTRIBUTION WIDTH 17.9 % (11.6-14.6)
[2023-02-23 12:00] VITALS: BP 148/56; PULSE 79; RESP 18; TEMP 97.9
[2023-02-23 16:00] VITALS: BP 141/54; PULSE 87; RESP 20; TEMP 97.7
[2023-02-23] MEDS: ATORVASTATIN CALCIUM 20MG TABLET PO SCH (16:17)
[2023-02-23 17:56] VITALS: BP 141/54; PULSE 87; TEMP 97.7; O2SAT 96
[2023-02-24] MEDS ORDERED: FAMOTIDINE 20MG/2ML VIAL IV SCH (09:00)
== END 2023-02-23 20:45 | DRG 535 ==
LOC: ER 10:41 → EDBEDREQTM 15:02 → EDBEDREQ 15:02 → 8WST 18:05
PROVIDERS: ADMIT Internal Medicine; ATTEND Internal Medicine
PROC: 5A1D70Z Performance of Urinary Filtration, Intermittent, Less than 6 Hours Per Day (ICD-10-PCS; principal; 2023-02-20)
PROC: 5A1D70Z Performance of Urinary Filtration, Intermittent, Less than 6 Hours Per Day (ICD-10-PCS; 2023-02-22)
DX: S32.591A Other specified fracture of right pubis, initial encounter for closed fracture (principal); N18.6 End stage renal disease; I13.2 Hypertensive heart and chronic kidney disease with heart failure and with stage 5 chronic kidney disease, or end stage renal disease; I50.32 Chronic diastolic (congestive) heart failure; R52 Pain, unspecified; K59.81 Ogilvie syndrome; E11.22 Type 2 diabetes mellitus with diabetic chronic kidney disease; D64.9 Anemia, unspecified; K59.00 Constipation, unspecified; Z20.822 Contact with and (suspected) exposure to COVID-19; W18.30XA Fall on same level, unspecified, initial encounter; E78.00 Pure hypercholesterolemia, unspecified; Z87.442 Personal history of urinary calculi; Z99.2 Dependence on renal dialysis; Z79.899 Other long term (current) drug therapy; Y93.89 Activity, other specified; Y92.89 Other specified places as the place of occurrence of the external cause; Y99.8 Other external cause status; Z82.49 Family history of ischemic heart disease and other diseases of the circulatory system; Z83.3 Family history of diabetes mellitus
CPT/HCPCS: 36415; 71045; 72192; 74176; 74270; 76770; 80048; 80053; 80305; 82550; 82553; 82607; 82728; 82746; 82962; 83540; 83550; 83880; 84484; 85025; 85044; 86705; 86709; 86803; 87340; 87426; 90935; 93005; 93923; 97162; 99285; C9113; J1644; J2765; Q9963; A4315

== ENCOUNTER 2023-03-18 10:57 | Inpatient (IN) | payer MEDICARE, MEDICAID ==
[~2023-03-18] VITALS: Ht 170.2 cm; Wt 70.1 kg
[~2023-03-18 10:57] MED LIST changes: +AMLO10TA80 PO; +AMOX1TAB16 PO; +ASCO-339 PO; +FERR325T6 PO; +METO-396 MT; +METO-396 PO; +NEPVIT PO; +SERT-112 PO; +clonidine PO
[2023-03-18 12:33] LABS: BASOPHILS % 1.1 % (0.0-2.0); EOSINOPHILS % 8.8 % (0.0-5.0); HEMATOCRIT. 33.9 % (42.0-52.0); LYMPHOCYTES % 11.5 % (20.0-50.0); MEAN CORPUSCULAR HEMOGLOBIN 27.3 pg (28.0-32.0); MEAN CORPUSCULAR HGB CONC 32.5 g/dL (31.0-37.0); MEAN CORPUSCULAR VOLUME 83.9 fL (80.0-94.0); MEAN PLATELET VOLUME 7.9 fl (7.4-10.4); MONOCYTES % 6.7 % (2.0-8.0); NEUTROPHILS % 71.9 % (40.0-76.0); PLATELET 193 x1000/uL (130-400); RED BLOOD CELL COUNT 4.04 mill/uL (4.7-6.1); RED CELL DISTRIBUTION WIDTH 19.8 % (11.6-14.6); WHITE BLOOD COUNT 6.8 x1000/uL (4.5-11.0)
[2023-03-18 12:43] LABS: CHLORIDE 96 mEq/L (98-107); INDEX HEMOLYSI 2 (1-3); INDEX ICTERIC 1 (1-4); INDEX LIPEMIC 1 (1-3); SODIUM 134 mEq/L (136-145)
[2023-03-18] MEDS ORDERED: MORPHINE SULFATE 2 MG/ML CPJ (NOT FOR IM USE) IV ONE (12:45)
[2023-03-18 12:54] LABS: ALANINE AMINOTRANSFERASE 14 IU/L (13-61); ALBUMIN 2.9 g/dL (3.4-5.0); ASPARTATE AMINOTRANSFERASE 27 IU/L (15-37); BILIRUBIN TOTAL 0.6 mg/dL (0.1-1.0); CALCIUM 9.1 mg/dL (8.5-10.1); CARBON DIOXIDE 29 mEq/L (21-32); GLUCOSE 78 mg/dL (70-105); PROTEIN TOTAL 7.6 g/dL (6.0-8.3); UREA NITROGEN BLOOD 32 mg/dL (7-21)
[2023-03-18 13:03] LABS: POTASSIUM 2.7 mEq/L (3.5-5.1); TROPONIN I HIGH SENSITIVITY 87 ng/L (<78)
[2023-03-18 13:04] LABS: CREATININE 6.5 mg/dL (0.6-1.3)
[2023-03-18] MEDS ORDERED: CLONIDINE 0.1MG TABLET PO NR (23:30)
[2023-03-19] VITALS (8 sets, daily range): BP systolic 113–186; BP diastolic 60–96; PULSE 67–93; RESP 15–20; TEMP 98–98.6
[2023-03-19] MEDS ORDERED: POTASSIUM CHLORIDE 20MEQ TABLET SR PO NR ×2 (00:15→08:30)
[2023-03-19] MEDS ORDERED: DEXTROSE 50% WATER 50ML SYRINGE IV PRN (02:15)
[2023-03-19] MEDS ORDERED: ACETAMINOPHEN 650MG/20.3ML UDC PO PRN (02:15)
[2023-03-19] MEDS ORDERED: HYDRALAZINE HCL 50MG TABLET PO NR (02:15)
[2023-03-19] MEDS ORDERED: CLONIDINE 0.1MG TABLET PO NR (02:15)
[2023-03-19 06:31] LABS: HEMATOCRIT. 31.3 % (42.0-52.0); HEMOGLOBIN. 10.3 g/dL (14.0-18.0); MEAN CORPUSCULAR HEMOGLOBIN 27.4 pg (28.0-32.0); MEAN CORPUSCULAR HGB CONC 32.8 g/dL (31.0-37.0); MEAN CORPUSCULAR VOLUME 83.4 fL (80.0-94.0); MEAN PLATELET VOLUME 8.2 fl (7.4-10.4); PLATELET 205 x1000/uL (130-400); RED BLOOD CELL COUNT 3.75 mill/uL (4.7-6.1); RED CELL DISTRIBUTION WIDTH 19.8 % (11.6-14.6); WHITE BLOOD COUNT 7.5 x1000/uL (4.5-11.0)
[2023-03-19 07:09] LABS: CALCIUM 8.5 mg/dL (8.5-10.1)
[2023-03-19 07:15] LABS: CREATININE 8.2 mg/dL (0.6-1.3)
[2023-03-19 07:17] LABS: POTASSIUM 2.8 mEq/L (3.5-5.1)
[2023-03-19 07:18] LABS: DIFFERENTIAL COMMENT 1
[2023-03-19] MEDS: INSULIN LISPRO 100 UNITS/ML SUBCUT SCH ×4 (07:20→21:00)
[2023-03-19] MEDS: BLOOD SUGAR DIAGNOSTIC STRIP TEST SCH ×4 (07:47→21:20)
[2023-03-19] MEDS ORDERED: HYDRALAZINE 20MG/ML VIAL IV PRN (08:15)
[2023-03-19 08:47] LABS: HEPATITIS B SURFACE ANTIGEN NEGATIVE
[2023-03-19 09:16] LABS: HEPATITIS C VIR.AB 0.15 INDEXVAL (0.00-0.80)
[2023-03-19] MEDS: HEPARIN 5000 UNITS/ML VIAL SUBCUT SCH ×2 (09:27→21:37)
[2023-03-19] MEDS: CLONIDINE 0.1MG TABLET PO SCH ×2 (09:28→17:29)
[2023-03-19] MEDS: HYDRALAZINE HCL 50MG TABLET PO SCH ×2 (09:28→21:37)
[2023-03-19 09:46] LABS: CLARITY URINE TURBID (CLEAR); COLOR URINE ORANGE (YELLOW); GLUCOSE URINE NEGATIVE (NEGATIVE); KETONES URINE NEGATIVE (NEGATIVE); LEUKOCYTE ESTERASE URINE 3+ (NEGATIVE); NITRITE URINE NEGATIVE (NEGATIVE); OCCULT BLOOD URINE 1+ (NEGATIVE); PH URINE 8.5 (4.5-8.0); PROTEIN URINE 4+ (NEGATIVE); SPECIFIC GRAVITY URINE 1.013 (1.005-1.030); UROBILINOGEN URINE 0.2 E.U./dL (0.2-1.0)
[2023-03-19] MEDS ORDERED: POTASSIUM CHLORIDE 20MEQ TABLET SR PO ONE (10:30)
[2023-03-19 10:42] LABS: TRIPLE PHOSPHATE CRYSTAL URINE 1+ /lpf
[2023-03-19 10:44] LABS: BACTERIA URINE 4+; SQUAMOUS EPITHELIAL CELL URINE NONE SEEN /lpf (RARE/1+)
[2023-03-19] MEDS ORDERED: HYDROCODONE/ACETAMINOPHEN 5/325MG TABLET PO PRN (11:00)
[2023-03-19] MEDS ORDERED: TRAMADOL 50MG TABLET PO PRN (11:00)
[2023-03-19] MEDS ORDERED: POTASSIUM CHLORIDE 20MEQ TABLET SR PO SCH (13:00)
[2023-03-19 13:25] LABS: ANISOCYTOSIS 1+; PLATELET ESTIMATE NORMAL
[2023-03-19] MEDS ORDERED: NALOXONE HCL 0.4MG/ML VIAL IV PRN (21:30)
[2023-03-19] MEDS: ATORVASTATIN CALCIUM 20MG TABLET PO SCH (21:36)
[2023-03-20] VITALS (14 sets, daily range): BP systolic 119–158; BP diastolic 50–92; PULSE 65–79; RESP 13–21; TEMP 97.6–98.5
[2023-03-20] MEDS: BLOOD SUGAR DIAGNOSTIC STRIP TEST SCH ×4 (06:14→22:05)
[2023-03-20] MEDS: INSULIN LISPRO 100 UNITS/ML SUBCUT SCH ×4 (07:20→22:05)
[2023-03-20] MEDS: AMLODIPINE 10MG TABLET PO SCH (08:35)
[2023-03-20] MEDS: SERTRALINE HCL 100MG TABLET PO SCH (08:36)
[2023-03-20] MEDS: FOLIC ACID/VITAMIN B COMP W-C TABLET PO SCH (08:36)
[2023-03-20] MEDS: HEPARIN 5000 UNITS/ML VIAL SUBCUT SCH ×2 (08:43→21:57)
[2023-03-20] MEDS ORDERED: NIFEDIPINE XL 60MG TAB PO SCH (09:00)
[2023-03-20] MEDS: CLONIDINE 0.1MG TABLET PO SCH ×2 (09:00→19:55)
[2023-03-20] MEDS: HYDRALAZINE HCL 50MG TABLET PO SCH ×2 (09:00→21:56)
[2023-03-20 09:52] LABS: HEMATOCRIT. 33.2 % (42.0-52.0); MEAN CORPUSCULAR HEMOGLOBIN 27.7 pg (28.0-32.0); MEAN CORPUSCULAR HGB CONC 33.1 g/dL (31.0-37.0); MEAN CORPUSCULAR VOLUME 83.6 fL (80.0-94.0); MEAN PLATELET VOLUME 8.5 fl (7.4-10.4); PLATELET 200 x1000/uL (130-400); RED BLOOD CELL COUNT 3.97 mill/uL (4.7-6.1); RED CELL DISTRIBUTION WIDTH 20.4 % (11.6-14.6); WHITE BLOOD COUNT 6.4 x1000/uL (4.5-11.0)
[2023-03-20 09:56] LABS: DIFFERENTIAL COMMENT 1
[2023-03-20 10:17] LABS: CALCIUM 8.9 mg/dL (8.5-10.1)
[2023-03-20 10:33] LABS: CREATININE 9.5 mg/dL (0.6-1.3); POTASSIUM 3.9 mEq/L (3.5-5.1)
[2023-03-20] MEDS ORDERED: LEVOFLOXACIN 500MG PREMIX 100 ML IV NR (15:30)
[2023-03-20] MEDS: ATORVASTATIN CALCIUM 20MG TABLET PO SCH (21:56)
[2023-03-20 23:50] LABS: PLATELET ESTIMATE NORMAL
[2023-03-21] VITALS (7 sets, daily range): BP systolic 110–172; BP diastolic 59–79; PULSE 66–83; RESP 14–18; TEMP 97.1–97.7; O2SAT 99
[2023-03-21] MEDS: BLOOD SUGAR DIAGNOSTIC STRIP TEST SCH ×2 (06:44→11:50)
[2023-03-21] MEDS: INSULIN LISPRO 100 UNITS/ML SUBCUT SCH ×2 (06:44→12:20)
[2023-03-21 07:13] LABS: HEMATOCRIT. 32.3 % (42.0-52.0); HEMOGLOBIN. 10.8 g/dL (14.0-18.0); MEAN CORPUSCULAR HEMOGLOBIN 27.8 pg (28.0-32.0); MEAN CORPUSCULAR HGB CONC 33.4 g/dL (31.0-37.0); MEAN CORPUSCULAR VOLUME 83.2 fL (80.0-94.0); MEAN PLATELET VOLUME 8.7 fl (7.4-10.4); PLATELET 182 x1000/uL (130-400); RED BLOOD CELL COUNT 3.89 mill/uL (4.7-6.1); RED CELL DISTRIBUTION WIDTH 19.7 % (11.6-14.6); WHITE BLOOD COUNT 6.6 x1000/uL (4.5-11.0)
[2023-03-21 07:14] LABS: DIFFERENTIAL COMMENT 1
[2023-03-21 07:30] LABS: POTASSIUM 3.4 mEq/L (3.5-5.1)
[2023-03-21 07:42] LABS: CREATININE 7.9 mg/dL (0.6-1.3)
[2023-03-21] MEDS: FOLIC ACID/VITAMIN B COMP W-C TABLET PO SCH (10:14)
[2023-03-21] MEDS: CLONIDINE 0.1MG TABLET PO SCH (10:15)
[2023-03-21] MEDS: AMLODIPINE 10MG TABLET PO SCH (10:16)
[2023-03-21] MEDS: SERTRALINE HCL 100MG TABLET PO SCH (10:16)
[2023-03-21] MEDS: HEPARIN 5000 UNITS/ML VIAL SUBCUT SCH (10:16)
[2023-03-21] MEDS: HYDRALAZINE HCL 50MG TABLET PO SCH (10:17)
[2023-03-21] MEDS ORDERED: POTASSIUM CHLORIDE 20MEQ TABLET SR PO NR ×2 (11:00→13:15)
[2023-03-21 21:44] LABS: ANISOCYTOSIS 1+; PLATELET ESTIMATE NORMAL
[2023-03-22] MEDS ORDERED: LEVOFLOXACIN 250MG PREMIX 50 ML IV SCH (16:00)
== END 2023-03-21 16:48 | disposition home health service (06) | DRG 535 ==
LOC: ER 11:16 → SUPCPDRO 20:20 → 3WST 03-19 01:15
PROVIDERS: ADMIT Internal Medicine; ATTEND Internal Medicine
PROC: 5A1D70Z Performance of Urinary Filtration, Intermittent, Less than 6 Hours Per Day (ICD-10-PCS; principal; 2023-03-20)
DX: S32.591A Other specified fracture of right pubis, initial encounter for closed fracture (principal); N18.6 End stage renal disease; I13.2 Hypertensive heart and chronic kidney disease with heart failure and with stage 5 chronic kidney disease, or end stage renal disease; I50.30 Unspecified diastolic (congestive) heart failure; K56.7 Ileus, unspecified; N39.0 Urinary tract infection, site not specified; E11.22 Type 2 diabetes mellitus with diabetic chronic kidney disease; Z20.822 Contact with and (suspected) exposure to COVID-19; E87.6 Hypokalemia; R29.6 Repeated falls; E78.5 Hyperlipidemia, unspecified; D63.1 Anemia in chronic kidney disease; Z87.440 Personal history of urinary (tract) infections; E78.00 Pure hypercholesterolemia, unspecified; Z99.2 Dependence on renal dialysis; Z82.49 Family history of ischemic heart disease and other diseases of the circulatory system; Z83.3 Family history of diabetes mellitus; Z87.442 Personal history of urinary calculi; Z79.899 Other long term (current) drug therapy; Z91.81 History of falling; W18.30XA Fall on same level, unspecified, initial encounter; Y93.89 Activity, other specified; Y92.009 Unspecified place in unspecified non-institutional (private) residence as the place of occurrence of the external cause; Y99.8 Other external cause status
CPT/HCPCS: 36415; 71045; 72131; 73521; 74018; 80048; 80053; 81003; 82962; 83036; 83735; 84484; 85025; 86803; 87077; 87186; 87340; 87426; 90935; 93005; 93970; 97162; 99291; A6261; J1644; J1956; J2270

== ENCOUNTER 2023-03-23 19:58 | Inpatient (IN) | payer MEDICARE, MEDICAID ==
[~2023-03-23] VITALS: Ht 167.6 cm; Wt 66.8 kg
[2023-03-23 20:03] VITALS: O2SAT 99
[2023-03-23 20:50] LABS: BASOPHILS % 0.4 % (0.0-2.0); EOSINOPHILS % 4.4 % (0.0-5.0); HEMATOCRIT. 35.3 % (42.0-52.0); HEMOGLOBIN. 11.5 g/dL (14.0-18.0); LYMPHOCYTES % 7.1 % (20.0-50.0); MEAN CORPUSCULAR HEMOGLOBIN 27.3 pg (28.0-32.0); MEAN CORPUSCULAR HGB CONC 32.5 g/dL (31.0-37.0); MEAN CORPUSCULAR VOLUME 84.1 fL (80.0-94.0); MEAN PLATELET VOLUME 8.3 fl (7.4-10.4); MONOCYTES % 5.7 % (2.0-8.0); NEUTROPHILS % 82.4 % (40.0-76.0); PLATELET 170 x1000/uL (130-400); RED CELL DISTRIBUTION WIDTH 20.4 % (11.6-14.6); WHITE BLOOD COUNT 7.3 x1000/uL (4.5-11.0)
[2023-03-23 20:57] LABS: CHLORIDE 95 mEq/L (98-107); INDEX HEMOLYSI 1 (1-3); INDEX ICTERIC 1 (1-4); INDEX LIPEMIC 1 (1-3); SODIUM 135 mEq/L (136-145)
[2023-03-23 21:00] LABS: DIFFERENTIAL COMMENT 1
[2023-03-23 21:12] LABS: ALANINE AMINOTRANSFERASE 19 IU/L (13-61); ALBUMIN 3.2 g/dL (3.4-5.0); ASPARTATE AMINOTRANSFERASE 32 IU/L (15-37); BILIRUBIN TOTAL 0.4 mg/dL (0.1-1.0); CALCIUM 9.6 mg/dL (8.5-10.1); CARBON DIOXIDE 27 mEq/L (21-32); GLUCOSE 87 mg/dL (70-105); PROTEIN TOTAL 8.3 g/dL (6.0-8.3); UREA NITROGEN BLOOD 46 mg/dL (7-21)
[2023-03-23 21:15] LABS: TROPONIN I HIGH SENSITIVITY 100 ng/L (<78)
[2023-03-23] MEDS ORDERED: OCTREOTIDE ACETATE 50 MCG/ML 1ML IV ONE (22:00)
[2023-03-23] MEDS ORDERED: OCTREOTIDE ACETATE 100 MCG/ML 1ML IV NR (22:15)
[2023-03-24] VITALS (14 sets, daily range): BP systolic 140–183; BP diastolic 68–85; PULSE 67–82; RESP 16–20; TEMP 97.7–98.9
[2023-03-24] MEDS ORDERED: DEXTROSE 50% WATER 50ML SYRINGE IV ONE (01:25)
[2023-03-24 01:47] LABS: CLARITY URINE CLOUDY (CLEAR); COLOR URINE YELLOW (YELLOW); GLUCOSE URINE TRACE (NEGATIVE); KETONES URINE NEGATIVE (NEGATIVE); LEUKOCYTE ESTERASE URINE 2+ (NEGATIVE); NITRITE URINE NEGATIVE (NEGATIVE); OCCULT BLOOD URINE 2+ (NEGATIVE); PH URINE >=9.0 (4.5-8.0); PROTEIN URINE 4+ (NEGATIVE); SPECIFIC GRAVITY URINE 1.015 (1.005-1.030); UROBILINOGEN URINE 0.2 E.U./dL (0.2-1.0)
[2023-03-24 02:14] LABS: BACTERIA URINE 1+; SQUAMOUS EPITHELIAL CELL URINE 1+ /lpf (RARE/1+)
[2023-03-24] MEDS ORDERED: DEXTROSE 50% WATER 50ML SYRINGE IV PRN (02:15)
[2023-03-24] MEDS ORDERED: DEXT 10% WATER 1,000 ML IV SCH ×2 (02:15→11:15)
[2023-03-24] MEDS: DEXT 10% WATER 1,000 ML IV SCH ×2 (02:44→09:46)
[2023-03-24] MEDS: BLOOD SUGAR DIAGNOSTIC STRIP TEST SCH ×2 (04:00→06:29)
[2023-03-24 10:17] LABS: BASOPHILS % 0.8 % (0.0-2.0); EOSINOPHILS % 13.3 % (0.0-5.0); HEMATOCRIT. 32.1 % (42.0-52.0); HEMOGLOBIN. 10.8 g/dL (14.0-18.0); LYMPHOCYTES % 12.5 % (20.0-50.0); MEAN CORPUSCULAR HEMOGLOBIN 28.1 pg (28.0-32.0); MEAN CORPUSCULAR HGB CONC 33.5 g/dL (31.0-37.0); MEAN CORPUSCULAR VOLUME 83.7 fL (80.0-94.0); NEUTROPHILS % 66.4 % (40.0-76.0); PLATELET 182 x1000/uL (130-400); RED BLOOD CELL COUNT 3.83 mill/uL (4.7-6.1); RED CELL DISTRIBUTION WIDTH 20.5 % (11.6-14.6); WHITE BLOOD COUNT 7.3 x1000/uL (4.5-11.0)
[2023-03-24 11:00] LABS: POTASSIUM 3.6 mEq/L (3.5-5.1)
[2023-03-24] MEDS ORDERED: ONDANSETRON HCL 4MG/2ML INJ IV PRN (11:30)
[2023-03-24] MEDS ORDERED: IPRATROPIUM/ALBUTEROL 0.5-3(2.5)MG/3ML NEB HHN PRN (11:30)
[2023-03-24] MEDS ORDERED: DOCUSATE SODIUM 100MG CAPSULE PO PRN (11:30)
[2023-03-24] MEDS ORDERED: ACETAMINOPHEN 325MG TABLET PO PRN ×2 (11:30)
[2023-03-24] MEDS ORDERED: NALOXONE HCL 0.4MG/ML VIAL IV PRN (11:45)
[2023-03-24] MEDS: CLONIDINE 0.1MG TABLET PO PRN (12:22)
[2023-03-24] MEDS: HYDROCODONE/ACETAMINOPHEN 5/325MG TABLET PO PRN ×2 (12:22→19:38)
[2023-03-24] MEDS ORDERED: LEVOFLOXACIN 500MG PREMIX 100 ML IV NR (13:00)
[2023-03-24 14:24] LABS: TROPONIN I HIGH SENSITIVITY 122 ng/L (<78)
[2023-03-24 17:11] LABS: HEPATITIS B SURFACE ANTIGEN NEGATIVE
[2023-03-24 17:39] LABS: HEPATITIS C VIR.AB 0.15 INDEXVAL (0.00-0.80)
[2023-03-24 17:40] LABS: HEPATITIS B CORE AB IGM NEGATIVE
[2023-03-24 17:41] LABS: HEPATITIS A AB IGM NEGATIVE (NEGATIVE)
[2023-03-24] MEDS: ATORVASTATIN CALCIUM 40MG TABLET PO SCH (21:10)
[2023-03-24] MEDS: HYDRALAZINE HCL 50MG TABLET PO SCH (21:10)
[2023-03-24 21:50] LABS: CREATINE KINASE MB FRACTION 8.7 ng/mL (0.5-3.6)
[2023-03-25 01:10] LABS: CREATINE KINASE MB FRACTION 8.6 ng/mL (0.5-3.6)
[2023-03-25] MEDS: HYDROCODONE/ACETAMINOPHEN 5/325MG TABLET PO PRN ×2 (03:12→13:29)
[2023-03-25 04:00] VITALS: BP 167/71; PULSE 74; RESP 18; TEMP 97.9
[2023-03-25] MEDS ORDERED: DEXT 10% WATER 1,000 ML IV SCH (06:00)
[2023-03-25] MEDS: CLONIDINE 0.1MG TABLET PO PRN (06:20)
[2023-03-25 07:16] LABS: EOSINOPHILS % 14.5 % (0.0-5.0); HEMATOCRIT. 30.5 % (42.0-52.0); HEMOGLOBIN. 10.2 g/dL (14.0-18.0); MEAN CORPUSCULAR HEMOGLOBIN 27.9 pg (28.0-32.0); MEAN CORPUSCULAR HGB CONC 33.5 g/dL (31.0-37.0); MEAN CORPUSCULAR VOLUME 83.4 fL (80.0-94.0); MEAN PLATELET VOLUME 8.3 fl (7.4-10.4); MONOCYTES % 7.9 % (2.0-8.0); NEUTROPHILS % 59.6 % (40.0-76.0); PLATELET 187 x1000/uL (130-400); RED BLOOD CELL COUNT 3.65 mill/uL (4.7-6.1); RED CELL DISTRIBUTION WIDTH 20.4 % (11.6-14.6); WHITE BLOOD COUNT 7.3 x1000/uL (4.5-11.0)
[2023-03-25 07:37] LABS: POTASSIUM 2.9 mEq/L (3.5-5.1)
[2023-03-25 07:42] LABS: CALCIUM 8.5 mg/dL (8.5-10.1)
[2023-03-25 07:43] LABS: CREATININE 6.5 mg/dL (0.6-1.3)
[2023-03-25 08:00] VITALS: BP 180/87; PULSE 74; RESP 18; TEMP 96.6
[2023-03-25] MEDS: HYDRALAZINE HCL 50MG TABLET PO SCH ×3 (08:41→21:54)
[2023-03-25] MEDS: AMLODIPINE 10MG TABLET PO SCH (08:42)
[2023-03-25] MEDS ORDERED: POTASSIUM CHLORIDE 20MEQ TABLET SR PO NR ×2 (08:45→10:45)
[2023-03-25] MEDS ORDERED: POTASSIUM CHLORIDE 20MEQ TABLET SR PO ONE (10:30)
[2023-03-25 12:00] VITALS: BP 103/61; PULSE 67; RESP 18; TEMP 96.5
[2023-03-25 16:00] VITALS: BP_SYST 111; BP_SYST 117; BP_DIAS 66; BP_DIAS 77; PULSE 102; PULSE 65; RESP 18; TEMP 97.6; TEMP 97.7
[2023-03-25 20:00] VITALS: BP 164/73; PULSE 75; RESP 20; TEMP 97.3
[2023-03-25] MEDS: BLOOD SUGAR DIAGNOSTIC STRIP TEST SCH (20:00)
[2023-03-25] MEDS: ATORVASTATIN CALCIUM 40MG TABLET PO SCH (21:53)
[2023-03-26] VITALS: BP 158/66; PULSE 78; RESP 19; TEMP 96.6
[2023-03-26 04:00] VITALS: BP 182/73; PULSE 73; RESP 19; TEMP 96.9
[2023-03-26] MEDS: BLOOD SUGAR DIAGNOSTIC STRIP TEST SCH ×3 (04:00→08:36)
[2023-03-26] MEDS: HYDRALAZINE HCL 50MG TABLET PO SCH (06:39)
[2023-03-26 08:00] VITALS: BP 175/77; PULSE 77; RESP 19; TEMP 98.2
[2023-03-26 08:02] LABS: BASOPHILS % 0.8 % (0.0-2.0); EOSINOPHILS % 14.6 % (0.0-5.0); HEMATOCRIT. 30.7 % (42.0-52.0); LYMPHOCYTES % 23.2 % (20.0-50.0); MEAN CORPUSCULAR HEMOGLOBIN 27.4 pg (28.0-32.0); MEAN CORPUSCULAR HGB CONC 32.5 g/dL (31.0-37.0); MEAN CORPUSCULAR VOLUME 84.3 fL (80.0-94.0); MEAN PLATELET VOLUME 8.3 fl (7.4-10.4); MONOCYTES % 7.7 % (2.0-8.0); NEUTROPHILS % 53.7 % (40.0-76.0); PLATELET 176 x1000/uL (130-400); RED BLOOD CELL COUNT 3.65 mill/uL (4.7-6.1); RED CELL DISTRIBUTION WIDTH 20.3 % (11.6-14.6); WHITE BLOOD COUNT 7.1 x1000/uL (4.5-11.0)
[2023-03-26] MEDS: AMLODIPINE 10MG TABLET PO SCH (08:11)
[2023-03-26 08:50] LABS: CALCIUM 8.8 mg/dL (8.5-10.1); PHOSPHORUS 5.4 mg/dL (2.5-4.9)
[2023-03-26 09:07] VITALS: BP 139/59; PULSE 78; TEMP 98.2
[2023-03-26 09:07] LABS: CREATININE 7.7 mg/dL (0.6-1.3)
[2023-03-26] MEDS ORDERED: POTASSIUM CHLORIDE 20MEQ TABLET SR PO NR (09:30)
[2023-03-26 09:57] VITALS: BP 139/59; PULSE 78; TEMP 98
[2023-03-26] MEDS ORDERED: LEVOFLOXACIN 250MG PREMIX 50 ML IV SCH (11:00)
[2023-03-26] MEDS ORDERED: SEVELAMER CARBONATE 800 MG TABLET PO SCH (12:10)
== END 2023-03-26 09:45 | DRG 637 ==
LOC: ER 20:26 → 7EST 23:29
PROVIDERS: ADMIT Internal Medicine; ATTEND Internal Medicine
PROC: 5A1D70Z Performance of Urinary Filtration, Intermittent, Less than 6 Hours Per Day (ICD-10-PCS; principal; 2023-03-24)
DX: E11.649 Type 2 diabetes mellitus with hypoglycemia without coma (principal); G93.41 Metabolic encephalopathy; I12.0 Hypertensive chronic kidney disease with stage 5 chronic kidney disease or end stage renal disease; N39.0 Urinary tract infection, site not specified; S32.591A Other specified fracture of right pubis, initial encounter for closed fracture; N18.6 End stage renal disease; E11.22 Type 2 diabetes mellitus with diabetic chronic kidney disease; Z20.822 Contact with and (suspected) exposure to COVID-19; I48.91 Unspecified atrial fibrillation; E87.6 Hypokalemia; E78.00 Pure hypercholesterolemia, unspecified; D63.1 Anemia in chronic kidney disease; R29.6 Repeated falls; Z87.442 Personal history of urinary calculi; Z83.3 Family history of diabetes mellitus; Z82.49 Family history of ischemic heart disease and other diseases of the circulatory system; Z99.2 Dependence on renal dialysis; Z91.81 History of falling; Z79.4 Long term (current) use of insulin
CPT/HCPCS: 36415; 71045; 74176; 80048; 80053; 81003; 82550; 82553; 82962; 83735; 84100; 84132; 84484; 85025; 86705; 86709; 86803; 87340; 87426; 90935; 93005; 99285; J1956; J2354; A4315

== ENCOUNTER 2023-05-30 11:54 | Inpatient (IN) | payer MEDICARE, MEDICAID ==
[~2023-05-30] VITALS: Ht 170.2 cm; Wt 69.5 kg
[~2023-05-30 11:54] MED LIST changes: +KCL 10MEQ/50ML PREMIX 50 ML IV NR
[2023-05-30 13:24] LABS: BASOPHILS % 1.4 % (0.0-2.0); EOSINOPHILS % 3.4 % (0.0-5.0); HEMATOCRIT. 33.8 % (42.0-52.0); LYMPHOCYTES % 15.5 % (20.0-50.0); MEAN CORPUSCULAR HEMOGLOBIN 28.3 pg (28.0-32.0); MEAN CORPUSCULAR HGB CONC 32.4 g/dL (31.0-37.0); MEAN CORPUSCULAR VOLUME 87.3 fL (80.0-94.0); MEAN PLATELET VOLUME 8.4 fl (7.4-10.4); MONOCYTES % 6.7 % (2.0-8.0); PLATELET 220 x1000/uL (130-400); RED BLOOD CELL COUNT 3.88 mill/uL (4.7-6.1); WHITE BLOOD COUNT 5.7 x1000/uL (4.5-11.0)
[2023-05-30 13:36] LABS: INR 1.1; PROTHROMBIN TIME 11.5 sec (9.6-11.0)
[2023-05-30 13:54] LABS: CHLORIDE 97 mEq/L (98-107); INDEX HEMOLYSI 3 (1-3); INDEX ICTERIC 1 (1-4); INDEX LIPEMIC 1 (1-3); SODIUM 136 mEq/L (136-145)
[2023-05-30 14:28] LABS: CARBON DIOXIDE 25 mEq/L (21-32); GLUCOSE 68 mg/dL (70-105); POTASSIUM 2.8 mEq/L (3.5-5.1)
[2023-05-30 14:29] LABS: ALBUMIN 3.8 g/dL (3.4-5.0); CALCIUM 9.8 mg/dL (8.5-10.1); CREATININE 6.6 mg/dL (0.6-1.3); PROTEIN TOTAL 9.1 g/dL (6.0-8.3); UREA NITROGEN BLOOD 39 mg/dL (7-21)
[2023-05-30 14:30] LABS: ALANINE AMINOTRANSFERASE 14 IU/L (13-61); ASPARTATE AMINOTRANSFERASE 31 IU/L (15-37)
[2023-05-30 14:31] LABS: TROPONIN I HIGH SENSITIVITY 1267 ng/L (<78)
[2023-05-30] MEDS ORDERED: ASPIRIN 325MG TABLET PO ONE (14:45)
[2023-05-30] MEDS: DEXTROSE 50% WATER 50ML SYRINGE IV PRN ×3 (16:47→18:30)
[2023-05-30] MEDS ORDERED: HEPARIN 5000 UNITS/ML VIAL IV ONE (17:15)
[2023-05-30] MEDS ORDERED: HEPARIN 25,000 UNITS PREMIX 250 ML IV ONE (17:15)
[2023-05-30] MEDS ORDERED: OCTREOTIDE ACETATE 50 MCG/ML 1ML SUBCUT SCH (18:00)
[2023-05-30 18:30] LABS: BILIRUBIN TOTAL 0.7 mg/dL (0.1-1.0)
[2023-05-30] MEDS ORDERED: DEXT 5%/0.9% NACL 1,000 ML IV ONE (18:45)
[2023-05-30] MEDS ORDERED: HEPARIN BOLUS PRN aPTT <30 IV (19:00)
[2023-05-30] MEDS ORDERED: DEXT 5%/0.45% NACL 1000ML 1,000 ML IV ONE (19:00)
[2023-05-30] MEDS ORDERED: HEPARIN BOLUS PRN aPTT 30-44 IV (19:00)
[2023-05-30] MEDS ORDERED: HEPARIN 60 UNITS/KG BOLUS IV NR (19:30)
[2023-05-30] MEDS ORDERED: HEPARIN 25,000 UNITS PREMIX 250 ML IV SCH (19:30)
[2023-05-30] MEDS ORDERED: KCL 20MEQ/100ML PREMIX 100 ML IV NR (21:00)
[2023-05-30 21:42] LABS: HEPATITIS B SURFACE ANTIGEN NEGATIVE
[2023-05-30 22:05] LABS: PHOSPHORUS 5.8 mg/dL (2.5-4.9)
[2023-05-30 22:11] LABS: HEPATITIS B CORE AB IGM NEGATIVE
[2023-05-30 22:12] LABS: HEPATITIS A AB IGM NEGATIVE (NEGATIVE)
[2023-05-31] VITALS (13 sets, daily range): BP systolic 138–190; BP diastolic 75–93; PULSE 64–80; RESP 16–20; TEMP 97.1–98.6
[2023-05-31 10:43] LABS: INR 1.1; PARTIAL THROMBOPLASTIN TIME 44.1 sec (23.4-31.0); PROTHROMBIN TIME 11.9 sec (9.6-11.0)
[2023-05-31 10:47] LABS: BASOPHILS % 2.6 % (0.0-2.0); EOSINOPHILS % 10.2 % (0.0-5.0); HEMATOCRIT. 31.3 % (42.0-52.0); HEMOGLOBIN. 10.1 g/dL (14.0-18.0); LYMPHOCYTES % 21.8 % (20.0-50.0); MEAN CORPUSCULAR HEMOGLOBIN 27.9 pg (28.0-32.0); MEAN CORPUSCULAR HGB CONC 32.4 g/dL (31.0-37.0); MEAN CORPUSCULAR VOLUME 86.1 fL (80.0-94.0); MEAN PLATELET VOLUME 8.4 fl (7.4-10.4); MONOCYTES % 7.6 % (2.0-8.0); NEUTROPHILS % 57.8 % (40.0-76.0); PLATELET 220 x1000/uL (130-400); RED BLOOD CELL COUNT 3.64 mill/uL (4.7-6.1); WHITE BLOOD COUNT 5.3 x1000/uL (4.5-11.0)
[2023-05-31 11:31] LABS: CALCIUM 9.2 mg/dL (8.5-10.1)
[2023-05-31 11:32] LABS: CREATININE 7.4 mg/dL (0.6-1.3)
[2023-05-31] MEDS ORDERED: POTASSIUM CHLORIDE 20MEQ TABLET SR PO NR (12:15)
[2023-05-31] MEDS: SEVELAMER CARBONATE 800 MG TABLET PO SCH ×2 (14:23→19:06)
[2023-05-31] MEDS: HYDRALAZINE HCL 25MG TABLET PO SCH ×2 (14:24→21:30)
[2023-05-31] MEDS ORDERED: HEPARIN BOLUS PRN aPTT 30-44 IV (17:45)
[2023-05-31] MEDS ORDERED: HEPARIN 25,000 UNITS PREMIX 250 ML IV SCH (17:45)
[2023-05-31] MEDS ORDERED: HEPARIN BOLUS PRN aPTT <30 IV (17:45)
[2023-06-01] VITALS (7 sets, daily range): BP systolic 103–190; BP diastolic 55–87; PULSE 70–91; RESP 16–20; TEMP 96.6–98; O2SAT 97
[2023-06-01] MEDS: HYDRALAZINE HCL 25MG TABLET PO SCH ×3 (05:43→21:23)
[2023-06-01 07:22] LABS: EOSINOPHILS % 10.1 % (0.0-5.0); LYMPHOCYTES % 20.6 % (20.0-50.0); MEAN CORPUSCULAR HEMOGLOBIN 28.7 pg (28.0-32.0); MEAN CORPUSCULAR HGB CONC 33.2 g/dL (31.0-37.0); MEAN CORPUSCULAR VOLUME 86.3 fL (80.0-94.0); MEAN PLATELET VOLUME 8.5 fl (7.4-10.4); NEUTROPHILS % 61.3 % (40.0-76.0); PLATELET 230 x1000/uL (130-400); RED BLOOD CELL COUNT 3.83 mill/uL (4.7-6.1); RED CELL DISTRIBUTION WIDTH 17.4 % (11.6-14.6)
[2023-06-01 08:34] LABS: POTASSIUM 3.6 mEq/L (3.5-5.1)
[2023-06-01 08:40] LABS: CALCIUM 9.4 mg/dL (8.5-10.1)
[2023-06-01] MEDS: SEVELAMER CARBONATE 800 MG TABLET PO SCH ×3 (08:59→18:36)
[2023-06-01] MEDS ORDERED: NIFEDIPINE XL 60MG TAB PO SCH (09:00)
[2023-06-01 09:55] LABS: CREATININE 6.9 mg/dL (0.6-1.3)
[2023-06-01 11:52] LABS: INR 1.1; PROTHROMBIN TIME 11.4 sec (9.6-11.0)
[2023-06-01] MEDS ORDERED: CARVEDILOL 6.25 MG TABLET PO SCH (21:00)
[2023-06-02] MEDS ORDERED: LOSARTAN 25 MG TABLET PO SCH (09:00)
== END 2023-06-01 22:21 | disposition home or self-care (01) | DRG 280 ==
LOC: ER 11:54 → MICUSO 16:53 → 7WST 05-31 02:43
PROVIDERS: ADMIT Internal Medicine; ATTEND Internal Medicine
PROC: 5A1D70Z Performance of Urinary Filtration, Intermittent, Less than 6 Hours Per Day (ICD-10-PCS; principal; 2023-05-31)
DX: I21.4 Non-ST elevation (NSTEMI) myocardial infarction (principal); N18.6 End stage renal disease; S32.591A Other specified fracture of right pubis, initial encounter for closed fracture; E87.1 Hypo-osmolality and hyponatremia; I13.2 Hypertensive heart and chronic kidney disease with heart failure and with stage 5 chronic kidney disease, or end stage renal disease; R18.8 Other ascites; E11.649 Type 2 diabetes mellitus with hypoglycemia without coma; E11.22 Type 2 diabetes mellitus with diabetic chronic kidney disease; E87.6 Hypokalemia; D64.9 Anemia, unspecified; E78.00 Pure hypercholesterolemia, unspecified; I48.91 Unspecified atrial fibrillation; I50.9 Heart failure, unspecified; R29.6 Repeated falls; Z87.440 Personal history of urinary (tract) infections; Z87.442 Personal history of urinary calculi; Z99.2 Dependence on renal dialysis; Z83.3 Family history of diabetes mellitus; Z82.49 Family history of ischemic heart disease and other diseases of the circulatory system; Z79.899 Other long term (current) drug therapy; X58.XXXA Exposure to other specified factors, initial encounter; Y93.89 Activity, other specified; Y92.89 Other specified places as the place of occurrence of the external cause; Y99.8 Other external cause status
CPT/HCPCS: 36415; 71045; 76604; 76705; 80048; 80053; 82962; 83036; 83605; 83735; 83880; 84100; 84145; 84484; 85025; 86705; 86709; 86803; 87340; 90935; 93005; 93880; 99291; J1644; J2354; J3480

== ENCOUNTER 2023-08-19 12:49 | Emergency (ER) | payer MEDICARE, MEDICAID ==
[~2023-08-19] VITALS: Ht 172.7 cm; Wt 69.0 kg
[~2023-08-19 12:49] MED LIST changes: -KCL 10MEQ/50ML PREMIX 50 ML IV NR
[2023-08-19 12:51] VITALS: O2SAT 98
[2023-08-19 13:32] LABS: BG BASE EXCESS 2.1 mmol/L (-2.0-2.0); BG CARBOXYHEMOGLOBIN 0.9 % (0.5-1.5); BG DEOXYHEMOGLOBIN 5.3 % (0.0-5.0); BG HCO3 ACT 27.7 mmol/L (22.0-26.0); BG OXYGEN SATURATION 94.7 % (92.0-98.5); BG OXYHEMOGLOBIN 93.8 % (94.0-97.0); BG PCO2 47.6 mmHg (35.0-45.0); BG PH 7.383 (7.350-7.450); BG PO2 79.1 mmHg (75.0-100.0); BG SAMPLE SITE RIGHT BRACHIAL; BG TOTAL HEMOGLOBIN 12.4 g/dL (12.0-18.0); BG VENT MODE ROOM AIR
[2023-08-19 14:20] LABS: AMMONIA < 10 uMol/L (<32)
[2023-08-19 14:22] LABS: ALANINE AMINOTRANSFERASE 31 IU/L (10-49); ALBUMIN 4.2 g/dL (3.2-4.8); ASPARTATE AMINOTRANSFERASE 48 IU/L (<34); BILIRUBIN TOTAL 0.3 mg/dL (0.1-1.0); CALCIUM 9.7 mg/dL (8.7-10.4); CARBON DIOXIDE 24 mEq/L (21-32); CHLORIDE 94 mEq/L (98-107); CREATINE KINASE 145 IU/L (46-171); CREATININE 3.6 mg/dL (0.6-1.3); GLUCOSE 80 mg/dL (70-105); PROTEIN TOTAL 8.3 g/dL (6.0-8.3); SODIUM 132 mEq/L (136-145); UREA NITROGEN BLOOD 38 mg/dL (9-23)
[2023-08-19 14:29] LABS: BASOPHILS % 0.6 % (0.0-2.0); HEMOGLOBIN. 11.1 g/dL (14.0-18.0); MEAN CORPUSCULAR HGB CONC 31.7 g/dL (31.0-37.0); MEAN CORPUSCULAR VOLUME 88.3 fL (80.0-94.0); MEAN PLATELET VOLUME 10.2 fl (7.4-10.4); MONOCYTES % 6.3 % (2.0-8.0); NEUTROPHILS % 84.1 % (40.0-76.0); RED BLOOD CELL COUNT 3.96 mill/uL (4.7-6.1); WHITE BLOOD COUNT 4.4 x1000/uL (4.5-11.0)
[2023-08-19 14:33] LABS: TROPONIN I HIGH SENSITIVITY 77 ng/L (3.0-53)
[2023-08-19 14:33] LABS: PLATELET 52 x1000/uL (130-400)
[2023-08-19 18:00] VITALS: TEMP 97
[2023-08-19] MEDS ORDERED: POTASSIUM CHLORIDE INJ 40 MEQ in DEXT 5% WATER 250 ML IV ONE (18:45)
[2023-08-19] MEDS ORDERED: KCL 20MEQ/100ML X 2 FOR TOTAL KCL 40MEQ/200ML IV SCH (19:00)
[2023-08-19 20:21] VITALS: BP 163/76; PULSE 70; RESP 13
== END 2023-08-19 20:30 | disposition short-term general hospital (02) ==
LOC: ER 13:55 → CANBEDREQ 18:07 → ER 20:30
DX: R41.82 Altered mental status, unspecified (principal); I12.0 Hypertensive chronic kidney disease with stage 5 chronic kidney disease or end stage renal disease; E11.22 Type 2 diabetes mellitus with diabetic chronic kidney disease; N18.6 End stage renal disease; E78.00 Pure hypercholesterolemia, unspecified; Z79.899 Other long term (current) drug therapy; Z98.890 Other specified postprocedural states
CPT/HCPCS: 99285; 96365; 70450; 71045; 80053; 82140; 82550; 83690; 85025; 84484; 36415; 82805; 82375; 93005; 36600; J3480; J7060